=== PATIENT | female | born 1975 | race Caucasian/White ===

== ENCOUNTER → 2016-02-28 | Outpatient (CLI) | payer BC ==
--- NOTE | 2016-03-02 10:42 | MM ---
Reason for exam: screening (asymptomatic). Last mammogram was performed 1 year and 2 months ago. Physical Findings: A clinical breast exam by your physician is recommended on an annual basis and results should be correlated with mammographic findings. MG 3D Screening Mammo W/Cad Bilateral CC and MLO view(s) were taken. Prior study comparison: January 02, 2015, bilateral MG 3d work up w/cad [facility]. December 20, 2014, bilateral MG screening mammo w CAD. There are scattered fibroglandular densities. Finding: There are typically benign round calcifications in the left breast. There is a chronic nodularity in the left breast. There is no discrete abnormality. ASSESSMENT: Benign, BI-RAD 2 RECOMMENDATION: Routine screening mammogram of both breasts in 1 year.
== END | disposition home or self-care (01) ==
LOC: RADMAMWWP 09:12
PROVIDERS: ATTEND Family Medicine
DX: Z12.31 Encounter for screening mammogram for malignant neoplasm of breast (principal)
CPT/HCPCS: 77063; G0202

== ENCOUNTER → 2016-03-02 | Outpatient (CLI) | payer BC ==
[2016-03-02 12:32] VITALS: BMI 44.4
== END | disposition home or self-care (01) ==
LOC: BARWHC3 08:40
PROVIDERS: ATTEND Surgery
DX: Z71.3 Dietary counseling and surveillance (principal); E66.01 Morbid (severe) obesity due to excess calories
CPT/HCPCS: 97804

== ENCOUNTER 2016-03-13 11:56 | Day surgery (SDC) | payer BC ==
[2016-03-09 15:10] VITALS: BMI 44.6
[~2016-03-13 11:56] MED LIST: LACTATED RINGERS 1,000 ML IV SCH
[2016-03-13] MEDS ORDERED: LIDOCAINE 1% 20 ML VIAL (10MG/ML) FOR IV START INTRADERMA ONE (12:25)
[2016-03-13 12:28] VITALS: TEMP 97.3
[2016-03-13] MEDS ORDERED: PROPOFOL 10 MG/ML 20 ML VIAL IV ONE (12:35)
--- NOTE | 2016-03-13 12:36 | P.GSHP ---
History of Present Illness H&P Date: 03/13/16 Chief Complaint: GERD Patient or today for upper endoscopy. Patient is being worked up preoperatively for a colonoscopy. She admits to intermittent reflux. Denies dysphagia. Past Medical History Past Medical History: Hypertension History of Any Multi-Drug Resistant Organisms: None Reported Past Surgical History: Section, Tonsillectomy, Tubal Ligation, Uterine Ablation Past Anesthesia/Blood Transfusion Reactions: Previous Problems w/ Anesthesia Additional Past Anesthesia/Blood Transfusion Reaction / Comment(s): HAS HAD "HARD TIME WAKING UP" Past Psychological History: Anxiety Smoking Status: Never smoker Past Alcohol Use History: None Reported Past Drug Use History: None Reported - Past Family History Mother Family Medical History: Cancer Additional Family Medical History / Comment(s): lung, from lung cancer Father Family Medical History: Cancer Additional Family Medical History / Comment(s): throat and lung cancer Medications and Allergies Home Medications Medication Instructions Recorded Confirmed Type ALPRAZolam [Xanax] 0.25 mg PO DIRECTED PRN 09/19/15 03/13/16 History Losartan/Hydrochlorothiazide 1 tab PO DAILY 09/19/15 03/13/16 History [Losartan-Hctz 50-12.5 mg Tab] Allergies Allergy/AdvReac Type Severity Reaction Status Date / Time No Known Allergies Allergy Verified 03/09/16 15:06 Surgical - Exam Vital Signs Temp Pulse Resp BP Pulse Ox 97.3 F L 85 16 151/95 98 03/13/16 12:13 03/13/16 12:13 03/13/16 12:13 03/13/16 12:13 03/13/16 12:13 Physical exam: General: Well-developed, well-nourished HEENT: Normocephalic, sclerae nonicteric Abdomen: Nontender, nondistended Extremities: No edema Neuro: Alert and oriented Assessment and Plan (1) Morbid obesity Narrative/Plan: Will proceed with upper endoscopy today. Status: Acute
--- NOTE | 2016-03-13 12:46 | P.PCN ---
Date of Procedure: 03/13/16 Procedure(s) Performed: Preoperative Dx: GERD, presurgical Postoperative Dx: Mild gastritis Procedure: EGD with Bx Anesthesia: Sedation Endoscopist: Dr. Villatoro Specimens: Antrum Endoscopic Procedure: The patient was on the endoscopy table in the left decubitus position. The Olympus gastroscope was inserted into the oropharynx and passed under direct visualization to the region of the third portion of the duodenum. From that point the scope was slowly withdrawn inspecting all surfaces carefully. There were no neoplastic inflammatory or polypoid lesions throughout the duodenum. The pylorus was widely patent. The stomach was carefully inspected. There was mild gastritis present. A biopsy of the antrum took place to rule out H. pylori. Retroflexion revealed a normal hiatus. The esophagus was then carefully examined. There were no neoplastic inflammatory or polypoid lesions throughout the visualized esophagus. The patient was then taken to the recovery room in stable condition per anesthesia guidelines. Recommendations: Await biopsies results. Disposition: observation
[2016-03-13 13:11] VITALS: BP 139/89; PULSE 86; RESP 18
== END 2016-03-13 13:25 | disposition home or self-care (01) ==
LOC: ORWHC2ENDO 11:56
PROVIDERS: ATTEND Surgery
DX: Z01.818 Encounter for other preprocedural examination (principal); K29.50 Unspecified chronic gastritis without bleeding; I10 Essential (primary) hypertension; F41.9 Anxiety disorder, unspecified; F39 Unspecified mood [affective] disorder; E66.01 Morbid (severe) obesity due to excess calories; Z68.41 Body mass index [BMI] 40.0-44.9, adult; Z79.899 Other long term (current) drug therapy
CPT/HCPCS: 81025; 88305; 88342; 43239; J2704

== ENCOUNTER → 2016-04-02 | Outpatient (CLI) | payer BC ==
[2016-04-02 11:14] LABS: EKG EKG PERFORMED
[2016-04-02 11:47] LABS: ALT 52 U/L (9-52); AST 21 U/L (14-36); Alkaline Phosphatase 77 U/L (38-126); Anion Gap 10 mmol/L; Blood Urea Nitrogen 12 mg/dL (7-17); Calcium 9.3 mg/dL (8.4-10.2); Carbon Dioxide 26 mmol/L (22-30); Chloride 105 mmol/L (98-107); Glucose 102 mg/dL (74-99); Non-African American GFR(MDRD) >60 (>60 ml/min/1.73 sqM); Potassium 4.5 mmol/L (3.5-5.1); Sodium 141 mmol/L (137-145); Total Bilirubin 0.6 mg/dL (0.2-1.3); Total Protein 7.1 g/dL (6.3-8.2)
[2016-04-02 11:57] LABS: Basophils # (A) 0.1 k/uL (0-0.2); Basophils % (A) 1 %; CH 27.2; CHCM 32.4; Eosinophils # (A) 0.1 k/uL (0-0.7); Eosinophils % (A) 1 %; HCT 41.7 % (34.0-46.0); HDW 2.61; HGB 13.3 gm/dL (11.4-16.0); Luc # (Auto) 0.17; Luc % (Auto) 3; Lymphocytes % (A) 29 %; MCH 26.8 pg (25.0-35.0); MCHC 31.8 g/dL (31.0-37.0); MCV 84.2 fL (80.0-100.0); Mean Platelet Volume 7.2; Monocytes # (A) 0.4 k/uL (0-1.0); Monocytes % (A) 5 %; Neutrophils # (A) 4.1 k/uL (1.3-7.7); Neutrophils % (A) 61 %; RBC 4.95 m/uL (3.80-5.40); RDW 13.8 % (11.5-15.5); WBC 6.8 k/uL (3.8-10.6); WBC (Perox) 7.13
== END | disposition home or self-care (01) ==
LOC: LABPAT 10:49
PROVIDERS: ATTEND Surgery
DX: Z01.812 Encounter for preprocedural laboratory examination (principal)
CPT/HCPCS: 36415; 80053; 85025; 93005

== ENCOUNTER 2016-04-24 07:45 | Inpatient (IN) | payer BC ==
[~2016-04-24 07:45] MED LIST changes: +DEXAMETHASONE SOD PHOSPHATE 10 MG/ML 1 ML VIAL IV ONE; -LACTATED RINGERS 1,000 ML IV SCH; +MIDAZOLAM 2 MG/2 ML VIAL IV PRN; +ONDANSETRON 4 MG/2 ML VIAL IVP ONE; +SCOPOLAMINE 1.5MG/72HR PATCH TRANSDERM ONE; +ceFAZolin 2 GM in SODIUM CHLORIDE 0.9% 100 ML IVPB ONE
[2016-04-24] MEDS ORDERED: PANTOPRAZOLE 40 MG/10 ML VIAL IV STA (09:18)
[2016-04-24] MEDS ORDERED: AMPICILLIN-SULBACTAM 3 GM in SODIUM CHLORIDE 0.9% 100 ML IVPB ONE (09:18)
[2016-04-24] MEDS ORDERED: ENOXAPARIN 40 MG/0.4 ML SYRINGE SQ STA (09:18)
[2016-04-24] MEDS: LACTATED RINGERS 1,000 ML IV SCH (09:22)
--- NOTE | 2016-04-24 09:22 | P.GSHP ---
History of Present Illness H&P Date: 04/24/16 Chief Complaint: Morbid obesity Patient is known to our service. We started see her last fall for proposed bariatric surgery. The patient is interested in sleeve gastrectomy. She has investigated gastric bypass and the lap band but prefers the sleeve. She had an aunt with done very well with the sleeve gastrectomy. Denies any history of DVT or dysphagia in the past. Recent upper endoscopy shows no hiatal hernia. Patient suffers from hypertension which should improve with surgical weight loss. Past Medical History Past Medical History: Hypertension History of Any Multi-Drug Resistant Organisms: None Reported Past Surgical History: Section, Tonsillectomy, Tubal Ligation, Uterine Ablation Additional Past Surgical History / Comment(s): recent EGD Past Anesthesia/Blood Transfusion Reactions: No Reported Reaction Past Psychological History: Anxiety Smoking Status: Never smoker Past Alcohol Use History: None Reported Past Drug Use History: None Reported - Past Family History Mother Family Medical History: Cancer Additional Family Medical History / Comment(s): lung, from lung cancer Father Family Medical History: Cancer Additional Family Medical History / Comment(s): throat and lung cancer Medications and Allergies Home Medications Medication Instructions Recorded Confirmed Type ALPRAZolam [Xanax] 0.25 mg PO DIRECTED PRN 09/19/15 04/24/16 History Losartan/Hydrochlorothiazide 1 tab PO DAILY 09/19/15 04/24/16 History [Losartan-Hctz 50-12.5 mg Tab] Allergies Allergy/AdvReac Type Severity Reaction Status Date / Time No Known Allergies Allergy Verified 04/24/16 08:49 Surgical - Exam Vital Signs Temp Pulse Resp BP Pulse Ox 98.1 F 97 18 135/76 96 04/24/16 09:03 04/24/16 09:03 04/24/16 09:03 04/24/16 09:03 04/24/16 09:03 Physical exam: General: Well-developed, well-nourished HEENT: Normocephalic, sclerae nonicteric Abdomen: Nontender, nondistended Extremities: No edema Neuro: Alert and oriented Assessment and Plan (1) Morbid obesity Narrative/Plan: We'll proceed with sleeve gastrectomy at this time. Risks of bleeding, infection, stenosis, leak, peritonitis, abscess, fistula formation, poor weight loss, chronic reflux, vitamin malnutrition efficiencies, HI, PE, DVT, and were discussed. She understands and wishes to proceed. Status: Acute
[2016-04-24] MEDS ORDERED: BUPIVACAIN-EPI 0.25%-1:200,000 30 ML VIAL SQ ONE ×2 (09:41)
[2016-04-24] MEDS ORDERED: LIDOCAINE 1% INJ 10MG/ML (20 ML MDV) ONE (09:45)
[2016-04-24] MEDS ORDERED: HYDROmorphone (PF) 1 MG/ML ONE (09:45)
[2016-04-24] MEDS ORDERED: GLYCOPYRROLATE 0.2 MG/ML 2 ML VIAL ONE (09:45)
[2016-04-24] MEDS ORDERED: METHYLENE BLUE 50 MG/10 ML AMPUL ONE (09:45)
[2016-04-24] MEDS ORDERED: NEOSTIGMINE 1 MG/ML 10 ML VIAL ONE (09:45)
[2016-04-24] MEDS ORDERED: VECURONIUM 10 MG VIAL IV ONE (09:45)
[2016-04-24] MEDS ORDERED: fentaNYL (PF) 50 MCG/ML 2 ML AMP ONE (09:45)
[2016-04-24] MEDS ORDERED: METHYLENE BLUE 50 MG/10 ML AMPUL IRRIGATION ONE (09:45)
[2016-04-24] MEDS ORDERED: SUCCINYLCHOLINE CHLORIDE 100 MG/5 ML SYR IV ONE (09:45)
[2016-04-24] MEDS ORDERED: PROPOFOL 10 MG/ML 20 ML VIAL IV ONE (09:45)
[2016-04-24] MEDS ORDERED: LABETALOL 5 MG/ML VIAL MDV ONE (09:45)
[2016-04-24] MEDS ORDERED: MIDAZOLAM 2 MG/2 ML VIAL ONE (09:45)
[2016-04-24] MEDS ORDERED: LACTATED RINGERS 1,000 ML IV ONE ×2 (10:37)
[2016-04-24] MEDS ORDERED: diphenhydrAMINE 50 MG/ML 1 ML VIAL IVP PRN (11:43)
[2016-04-24] MEDS ORDERED: ONDANSETRON 4 MG/2 ML VIAL IVP PRN (11:43)
[2016-04-24] MEDS ORDERED: SIMETHICONE 40 MG/0.6 ML DROPS 2,000 MG/30 ML BOTTLE PO PRN (11:43)
[2016-04-24] MEDS ORDERED: HYOSCYAMINE ORAL DROPS 1.875 MG/15 ML BOTTLE PO PRN (11:43)
[2016-04-24] MEDS ORDERED: NALOXONE 0.4 MG/ML 1 ML VIAL IV PRN (11:43)
[2016-04-24 11:52] VITALS: RESP 16
--- NOTE | 2016-04-24 11:56 | P.OP ---
Date of Procedure: 04/24/16 Procedure(s) Performed: PREOPERATIVE DIAGNOSIS: Morbid obesity, retention POSTOPERATIVE DIAGNOSIS: Same PROCEDURE: Laparoscopic sleeve gastrectomy SURGEON: Shauna EBL: Minimal ANESTHESIA: General COMPLICATIONS: None OPERATIVE PROCEDURE: Patient was placed in the operating table in the supine position. She was placed under general anesthesia at that time. The abdomen was prepped and draped in sterile fashion after the patient was placed in lithotomy. A 5 mm optical trocar was used to enter the abdominal cavity in the left upper quadrant. Insufflation took place to 15 millimeters mercury. An additional right subxiphoid 5 mm trocar was then placed under direct visualization and then removed. 2 additional 5 mm trochars were placed in the right upper quadrant and left upper quadrant under direct visualization and a 15 mm trocar in the supraumbilical location. The liver was retracted using a medium [place] liver retractor through the right subxiphoid trocar site. The hiatus was inspected. The patient had no visible hiatal hernia At that point I moved to the mid aspect of the greater curvature the stomach. The short gastric vasculature was divided using a LigaSure device proximally. I then switched and divided the short gastrics distally to a 3-4 cm from the pylorus. The dissection took place up to the left diaphragmatic crura at that point. The posterior short gastrics were likewise divided using the LigaSure device. Once the stomach was fully mobilized the blunt tipped 40-Persian bougie dilator was advanced into the stomach and advanced all the way to the prepyloric location. A black echelon 60 stapler was utilized and fired tangentially across the antrum taking care to avoid narrowing at the incisura angularis. Subsequent firings of the stapler took place. A total of 4 green echelon 60 staplers with seam guard took place proximally staying on the outer edge of our dilator. Once we reached the most proximal portion of the stomach a single firing of the gold echelon 60 stapler without seen guard took place. The oral gastric tube was reinserted. The stomach was insufflated with approximately 100 mL of methylene blue. No evidence of leak or obstruction was seen. The distal aspect of the sleeve was then reapproximated to the gastrosplenic and gastrocolic ligament using a short running 2-0 strata fix suture. This was done to prevent kinking or twisting of the sleeve. The stomach remnant was removed from the 15 mm trocar site without difficulty. The fascia at the 15 more site was closed using interrupted 0 Vicryl sutures with the laparoscopic suture passer and Yonny Raquel technique. The insufflation was evacuated. The skin at all 5 incisions were closed using 4-0 Monocryl sutures. Steri- Strips and sterile dressings were then applied. DISPOSITION: Stable to recovery room
[2016-04-24] MEDS ORDERED: ACETAMINOPHEN IV (For NPO) 1,000 MG in EMPTY BAG 1 BAG IVPB ONE (12:00)
[2016-04-24] MEDS ORDERED: ENALAPRILAT 1.25 MG/ML 1 ML VIAL IVP STA ×2 (12:20→13:48)
[2016-04-24] MEDS ORDERED: ENALAPRILAT 1.25 MG/ML 1 ML VIAL IVP ONE (12:23)
[2016-04-24] MEDS: HYDROmorphone 1 MG/ML 1 ML SYRINGE IVP PRN ×2 (12:33→13:05)
[2016-04-24 15:17] VITALS: BMI 41.1
[2016-04-24] MEDS: ALBUTEROL NEBULIZED 2.5 MG/3 ML INHALATION SCH ×2 (15:56→19:21)
[2016-04-25] MEDS: 0.9% NACL WITH KCL 20 MEQ/L 1,000 ML IV SCH ×2 (01:39→12:41)
[2016-04-25] MEDS: HYDROmorphone 1 MG/ML 1 ML SYRINGE IVP PRN ×3 (01:40→12:42)
[2016-04-25] MEDS: LACTATED RINGERS 1,000 ML IV SCH (05:55)
[2016-04-25 07:06] LABS: Basophils % (A) 0 %; CH 27.6; CHCM 33.4; Eosinophils % (A) 0 %; HCT 35.4 % (34.0-46.0); HDW 2.82; HGB 11.7 gm/dL (11.4-16.0); Luc # (Auto) 0.23; Luc % (Auto) 2; Lymphocytes # (A) 1.6 k/uL (1.0-4.8); Lymphocytes % (A) 13 %; MCH 27.6 pg (25.0-35.0); MCHC 33.2 g/dL (31.0-37.0); MCV 83.1 fL (80.0-100.0); Mean Platelet Volume 8.2; Monocytes # (A) 0.7 k/uL (0-1.0); Monocytes % (A) 5 %; Neutrophils # (A) 9.5 k/uL (1.3-7.7); Neutrophils % (A) 79 %; RBC 4.26 m/uL (3.80-5.40); RDW 14.2 % (11.5-15.5); WBC (Perox) 12.83
[2016-04-25 07:19] LABS: Anion Gap 11 mmol/L; Blood Urea Nitrogen 6 mg/dL (7-17); Calcium 8.1 mg/dL (8.4-10.2); Carbon Dioxide 20 mmol/L (22-30); Chloride 110 mmol/L (98-107); Magnesium 1.8 mg/dL (1.6-2.3); Non-African American GFR(MDRD) >60 (>60 ml/min/1.73 sqM); Phosphorous 2.4 mg/dL (2.5-4.5); Sodium 141 mmol/L (137-145)
--- NOTE | 2016-04-25 07:26 | FL ---
EXAMINATION TYPE: FL UGI DATE OF EXAM: 04/25/2016 7:22 AM COMPARISON: NONE HISTORY: Post sleeve procedure TECHNIQUE: A single contrast UGI study is performed. FINDINGS: Money Room Supervisor image of the abdomen shows no gross abnormality. The esophagus shows normal motility and emptying into the stomach. No evidence of obstruction or extr avasation.. IMPRESSION: 1. No evidence of obstruction or extravasation.
[2016-04-25] MEDS: ALBUTEROL NEBULIZED 2.5 MG/3 ML INHALATION SCH ×4 (08:57→20:28)
[2016-04-25] MEDS: PANTOPRAZOLE 40 MG/10 ML VIAL IV SCH (09:06)
--- NOTE | 2016-04-25 10:42 | CONS ---
DATE OF CONSULTATION: 04/24/2016 REASON FOR CONSULTATION: Medical management requested by Dr. Villatoro. CONSULTATION: This is a pleasant 41-year-old patient I saw yesterday on 04/24/16. Patient's chronic stable medical conditions include hypertension. The patient has undergone sleeve gastrectomy by Dr. Villatoro. Patient is jesenia in bed. No nausea or vomiting. Very slight abdominal discomfort. No chest pain or shortness of breath. REVIEW OF SYSTEMS: CONSTITUTIONAL: Tired. HEENT: None. RESPIRATORY: None. CARDIOVASCULAR: None. GASTROINTESTINAL: Slight abdominal pain. GENITOURINARY: None. MUSCULOSKELETAL: None. DERMATOLOGICAL: None. HEMATOLOGICAL: None. LYMPHATIC: None. PSYCHIATRY: None. NEUROLOGICAL: None. PAST MEDICAL HISTORY: Hypertension, obesity. PAST SURGICAL HISTORY: , tonsillectomy, tubal ligation, uterine ablation, EGD. SOCIAL HISTORY: Does not smoke. . No alcohol. Family history of lung cancer. HOME MEDICATIONS: 1. Losartan hydrochlorothiazide 50/12.5 one tablet p.o. daily. 2. Xanax 0.25 p.o. b.i.d. p.r.n. 3. Omeprazole 20 mg daily. 4. [place] 5 one to two tablets q.4 p.r.n. ALLERGIES: None. On examination, temperature 98.6, pulse 65, respiration 16, blood pressure 170/82, pulse ox 92% on 2 L. Repeat blood pressure down to 138/68. GENERAL APPEARANCE: Well built, BMI of 41.2, lying in bed, not in distress. EYES: Pupils equal. Conjunctivae normal. HEENT: External appearance of nose and ears normal. Oral cavity normal. NECK: JVD not raised. Mass not palpable. RESPIRATORY: Effort normal. Lungs are clear. CARDIOVASCULAR: First and second sounds normal. No edema. ABDOMEN: Mild tenderness, soft. Liver and spleen not palpable. LYMPHATIC: No lymph nodes palpable in neck or axillae. PSYCHIATRY: Alert and oriented x3. Mood and affect normal. NEUROLOGICAL: Pupils equal. Cranial nerves grossly intact. Power and sensation grossly intact. INVESTIGATIONS: White count 12, hemoglobin 11.7. Potassium 4. ASSESSMENT: 1. Sleeve gastrectomy for morbid obesity, body mass index of 41.2. 2. Leukocytosis, likely from stress reaction from surgery. No clinical evidence of infection. 3. Essential hypertension. 4. Gastroesophageal reflux disease. PLAN: Patient will have an upper gastrointestinal series in the morning then patient's antihypertensives can be resumed. Patient has got boots for DVT prophylaxis. Care was discussed with the patient. Questions were answered. Patient to follow with Dr. Harrell upon discharge. Thank you, Dr. Villatoro.
--- NOTE | 2016-04-25 11:47 | P.PN ---
Subjective Principal diagnosis: Morbid obesity Patient doing quite well today. White blood cell count was 12. Upper GI shows no evidence of leak or obstruction. She is ambulating. Objective - Vital Signs Vital signs: Vital Signs Temp 96.6 F L 04/25/16 07:33 Pulse 78 04/25/16 07:33 Resp 16 04/25/16 07:33 BP 133/64 04/25/16 07:33 Pulse Ox 96 04/25/16 08:53 Intake & Output 04/24/16 04/25/16 04/25/16 18:59 06:59 18:59 Intake Total 1550 Output Total 660 1100 Balance 890 -1100 Weight 98.9 kg Intake: IV 1550 Output: Urine 650 1100 Estimated Blood Loss 10 Other: Voiding Method Toilet Toilet # Voids 2 - Exam Abdomen: Soft, nondistended, mild incisional tenderness - Labs CBC & Chem 7: 04/25/16 06:32 04/25/16 06:32 Labs: Abnormal Lab Results - Last 24 Hours (Table) 04/25/16 04/25/16 Range/Units 06:32 06:32 WBC 12.0 H (3.8-10.6) k/uL Neutrophils # 9.5 H (1.3-7.7) k/uL Chloride 110 H (98-107) mmol/L Carbon Dioxide 20 L (22-30) mmol/L BUN 6 L (7-17) mg/dL Calcium 8.1 L (8.4-10.2) mg/dL Phosphorus 2.4 L (2.5-4.5) mg/dL Assessment and Plan (1) Morbid obesity Narrative/Plan: Continue bariatric clear diet. Ambulate. Probable discharge tomorrow. Status: Acute
[2016-04-25] MEDS: ENOXAPARIN 40 MG/0.4 ML SYRINGE SQ SCH ×2 (13:08→20:35)
[2016-04-25] MEDS: KETOROLAC 30 MG/ML 1 ML VIAL IVP SCH ×3 (13:12→23:31)
--- NOTE | 2016-04-25 20:01 | PN ---
DATE OF SERVICE: 04/25/2016 PRESENTING COMPLAINT: Sleeve gastrectomy. INTERVAL HISTORY: Patient is status post sleeve gastrectomy. Did, pass her upper GI series, started on clear liquids, has been up in the hallway. Overall feeling better. Review of systems done for constitutional, cardiovascular, GI, pulmonary; relevant findings as above. Current medications are reviewed. On examination, temperature 96.6, pulse 78, respirations 16, blood pressure 133/64, pulse ox 98% on room air. GENERAL APPEARANCE: Lying in bed, comfortable. EYES: Pupils equal. Conjunctivae normal. NECK: JVD not raised. Mass not palpable. RESPIRATORY: Effort normal. Lungs are clear. CARDIOVASCULAR: First and second sounds normal. No edema. ABDOMEN: Soft, mild tenderness. Liver and spleen not palpable. PSYCHIATRY: Mood and affect normal. INVESTIGATIONS: White count 12, hemoglobin 11.7, potassium 4. ASSESSMENT: 1. Sleeve gastrectomy for morbid obesity, body mass index of 41.2. 2. Leukocytosis likely from stress reaction from Surgery. No evidence of infection. 3. Essential hypertension. 4. Gastroesophageal reflux disease. 5. Morbid obesity; body mass index 41.2. PLAN: Patient is doing well. Encouraged to ambulate. Continue current medications and treatment plan.
[2016-04-26] MEDS: 0.9% NACL WITH KCL 20 MEQ/L 1,000 ML IV SCH (05:16)
[2016-04-26] MEDS: LACTATED RINGERS 1,000 ML IV SCH (05:17)
[2016-04-26] MEDS: KETOROLAC 30 MG/ML 1 ML VIAL IVP SCH (05:56)
[2016-04-26] MEDS: ALBUTEROL NEBULIZED 2.5 MG/3 ML INHALATION SCH ×2 (07:24→11:57)
[2016-04-26] MEDS: ENOXAPARIN 40 MG/0.4 ML SYRINGE SQ SCH (07:41)
[2016-04-26] MEDS: PANTOPRAZOLE 40 MG/10 ML VIAL IV SCH (07:41)
--- NOTE | 2016-04-26 10:14 | P.DS ---
Providers Date of admission: 04/24/16 08:30 Expected date of discharge: 04/26/16 Attending physician: Pa Villatoro Consults: 04/24/16 11:53 Consult Physician Routine Consulting Provider: George Gotti Consult Reason/Comments: Medical management Do you want consulting provider notified?: Yes Primary care physician: Enmanuel Harrell - Discharge Diagnosis(es) (1) Morbid obesity Patient hospitalized for elective sleeve gastrectomy. She is currently postop day #2. Her postoperative upper GI shows no evidence of leak or obstruction. She has been ambulating quite nicely. Her pain is minimal. She is tolerating her liquids. Incisions are clean and dry. She is being discharged today with plans for outpatient follow-up this coming week. Current Visit: No Status: Acute Plan - Discharge Summary New Discharge Prescriptions: Hydrocodone/Acetaminophen [[place] 5-325] 1 - 2 each PO Q4HR PRN #30 tab PRN Reason: pain Omeprazole 20 mg PO DAILY #90 cap Discharge Medication List ALPRAZolam [Xanax] 0.25 mg PO BID PRN 09/19/15 [History] Losartan/Hydrochlorothiazide [Losartan-Hctz 50-12.5 mg Tab] 1 tab PO DAILY 09/18 [History] Hydrocodone/Acetaminophen [[place] 5-325] 1 - 2 each PO Q4HR PRN #30 tab 04/24/16 [Rx] Omeprazole 20 mg PO DAILY #90 cap 04/24/16 [Rx] Follow up Appointment(s)/Referral(s): Pa Villatoro MD [Medical Doctor] - [facility],. [NON-STAFF] - 04/28/16
[2016-04-26 10:54] LABS: Basophils # (A) 0.1 k/uL (0-0.2); Basophils % (A) 1 %; CH 27.4; CHCM 33.2; Eosinophils % (A) 0 %; HCT 34.3 % (34.0-46.0); HDW 2.93; HGB 10.9 gm/dL (11.4-16.0); Luc # (Auto) 0.19; Luc % (Auto) 3; Lymphocytes # (A) 2.2 k/uL (1.0-4.8); Lymphocytes % (A) 31 %; MCH 26.3 pg (25.0-35.0); MCHC 31.7 g/dL (31.0-37.0); Mean Platelet Volume 8.5; Monocytes # (A) 0.4 k/uL (0-1.0); Monocytes % (A) 5 %; Neutrophils # (A) 4.3 k/uL (1.3-7.7); Neutrophils % (A) 60 %; RBC 4.14 m/uL (3.80-5.40); RDW 14.4 % (11.5-15.5); WBC 7.2 k/uL (3.8-10.6); WBC (Perox) 7.21
[2016-04-26 13:49] VITALS: BP 144/76; PULSE 74; TEMP 97.1
== END 2016-04-26 14:23 | disposition home or self-care (01) | DRG 621 ==
LOC: 2ORWHC 08:30 → 3SUR 11:53
PROVIDERS: ADMIT Surgery; ATTEND Surgery
PROC: 0DB64Z3 Excision of Stomach, Percutaneous Endoscopic Approach, Vertical (ICD-10-PCS; principal; 2016-04-24 09:40)
DX: E66.01 Morbid (severe) obesity due to excess calories (principal); I10 Essential (primary) hypertension; D72.829 Elevated white blood cell count, unspecified; F41.9 Anxiety disorder, unspecified; K21.9 Gastro-esophageal reflux disease without esophagitis; Z68.41 Body mass index [BMI] 40.0-44.9, adult; Z80.1 Family history of malignant neoplasm of trachea, bronchus and lung; Z79.899 Other long term (current) drug therapy
CPT/HCPCS: 74240; 80051; 82310; 82565; 83735; 84100; 84520; 85025; 88307; 92950; 94760

== ENCOUNTER → 2016-04-28 | Outpatient (CLI) | payer BC ==
[2016-04-28 15:12] VITALS: BMI 41.8
[2016-04-28 15:34] VITALS: BP 155/87; PULSE 74; RESP 20; TEMP 98
--- NOTE | 2016-04-28 16:08 | P.BASOAP ---
Subjective Principal diagnosis: Obesity The patient doing well today. Surgery was 4 days ago. Yesterday she was having some mild dysphagia but better today. Tolerating proximal 40-50 ounces of liquids. No heartburn. Minimal discomfort. Weight increased slightly by 3 pounds since surgery date. Objective - Vital Signs Vital signs: Vital Signs Temp 98 F 04/28/16 15:21 Pulse 74 04/28/16 15:21 Resp 20 04/28/16 15:21 BP 155/87 04/28/16 15:21 Pulse Ox Intake & Output 04/27/16 04/28/16 04/28/16 18:59 06:59 18:59 Weight 100.289 kg - Exam Abdomen: Soft, nontender, nondistended, incisions clean and dry Assessment/Plan (1) Morbid obesity Narrative/Plan: Continue bariatric liquid diet. Increase activity. Increase both liquid and protein intake. Follow-up evaluation 2 weeks. Plan: Date: 04/28/16 Initial Weight: 108.726 kg Initial BMI: 45.3 Current Weight: 100.289 kg Current BMI: 41.8 Type of Surgery: Total Volume in Band: Previous Volume: Volume Removed: Volume Added: Band Size:
== END | disposition home or self-care (01) ==
LOC: BARWHC3 14:14
PROVIDERS: ATTEND Surgery
DX: Z48.815 Encounter for surgical aftercare following surgery on the digestive system (principal); Z71.3 Dietary counseling and surveillance; E66.01 Morbid (severe) obesity due to excess calories; Z68.41 Body mass index [BMI] 40.0-44.9, adult; Z98.84 Bariatric surgery status; R13.10 Dysphagia, unspecified
CPT/HCPCS: 99211

== ENCOUNTER → 2016-05-12 | Outpatient (CLI) | payer BC ==
[2016-05-12 15:15] VITALS: BP 147/85; PULSE 86; RESP 18; TEMP 98.3; BMI 39.6
--- NOTE | 2016-05-12 16:12 | P.BASOAP ---
Subjective Principal diagnosis: Morbid obesity Patient doing well today. Denies hunger or cravings. No heartburn. She is a good weight loss since her last visit. No abdominal pain. Preoperative weight was 221 today to 07. Objective - Vital Signs Vital signs: Vital Signs Temp 98.3 F 05/12/16 15:03 Pulse 86 05/12/16 15:03 Resp 18 05/12/16 15:03 BP 147/85 05/12/16 15:03 Pulse Ox Intake & Output 05/11/16 05/12/16 05/12/16 18:59 06:59 18:59 Weight 95.209 kg - Exam Abdomen: Soft, nontender, nondistended, incisions clean and dry Assessment/Plan (1) Morbid obesity Narrative/Plan: Continue antiacid therapy for now. We'll check one month labs. Follow-up 1 month. Plan: Date: 05/12/16 Initial Weight: 108.726 kg Initial BMI: 45.3 Current Weight: 95.209 kg Current BMI: 39.6 Type of Surgery: Total Volume in Band: Previous Volume: Volume Removed: Volume Added: Band Size:
== END | disposition home or self-care (01) ==
LOC: BARWHC3 14:26
PROVIDERS: ATTEND Surgery
DX: Z48.815 Encounter for surgical aftercare following surgery on the digestive system (principal); E66.01 Morbid (severe) obesity due to excess calories; Z68.39 Body mass index [BMI] 39.0-39.9, adult; Z98.84 Bariatric surgery status; E55.9 Vitamin D deficiency, unspecified
CPT/HCPCS: 99211

== ENCOUNTER → 2016-05-26 | Outpatient (CLI) | payer BC ==
[2016-05-26 14:25] LABS: ALT 50 U/L (9-52); AST 26 U/L (14-36); Alkaline Phosphatase 73 U/L (38-126); Anion Gap 12 mmol/L; Blood Urea Nitrogen 13 mg/dL (7-17); Calcium 9.3 mg/dL (8.4-10.2); Carbon Dioxide 24 mmol/L (22-30); Chloride 105 mmol/L (98-107); Glucose 82 mg/dL (74-99); Iron 30 ug/dL (37-170); Magnesium 1.7 mg/dL (1.6-2.3); Non-African American GFR(MDRD) >60 (>60 ml/min/1.73 sqM); Potassium 4.6 mmol/L (3.5-5.1); Sodium 141 mmol/L (137-145); Total Bilirubin 0.5 mg/dL (0.2-1.3); Total Protein 6.6 g/dL (6.3-8.2)
[2016-05-26 14:32] LABS: Prealbumin 13 mg/dL (18-36)
[2016-05-26 14:37] LABS: CH 26.6; CHCM 31.4; HCT 41.7 % (34.0-46.0); HDW 2.95; HGB 13.5 gm/dL (11.4-16.0); Hypochromasia Slight; MCH 27.5 pg (25.0-35.0); MCHC 32.3 g/dL (31.0-37.0); MCV 85.3 fL (80.0-100.0); Mean Platelet Volume 7.8; RBC 4.89 m/uL (3.80-5.40); RDW 14.9 % (11.5-15.5); WBC 7.6 k/uL (3.8-10.6)
[2016-05-26 15:30] LABS: Vitamin B12 466 pg/mL (239-931)
== END ==
LOC: LABWHC1 13:24
PROVIDERS: ATTEND Surgery
DX: Z48.815 Encounter for surgical aftercare following surgery on the digestive system (principal); E66.01 Morbid (severe) obesity due to excess calories; K90.9 Intestinal malabsorption, unspecified; E55.9 Vitamin D deficiency, unspecified; Z98.84 Bariatric surgery status
CPT/HCPCS: 36415; 80053; 82306; 82607; 82746; 83540; 83735; 84100; 84134; 84425; 85027

== ENCOUNTER → 2016-06-09 | Outpatient (CLI) | payer BC ==
[2016-06-09 13:05] VITALS: BP 136/78; PULSE 80; TEMP 97.8; BMI 37.4
--- NOTE | 2016-06-09 13:51 | P.BASOAP ---
Subjective Principal diagnosis: Morbid obesity Patient doing quite well today. She has had excellent weight loss approximately 12 pounds since her last visit. Her 1 month lab work did reveal low iron and low vitamin D. She is started on multivitamin with iron is taking B12 shots and is also taking calcium and vitamin D 3. Patient denies reflux. No nausea or vomiting. Energy level is quite good. She is starting to train for a couch to 5K. Objective - Vital Signs Vital signs: Vital Signs Temp 97.8 F 06/09/16 13:01 Pulse 80 06/09/16 13:01 Resp BP 136/78 06/09/16 13:01 Pulse Ox Intake & Output 06/08/16 06/09/16 06/09/16 18:59 06:59 18:59 Weight 89.811 kg - Exam Abdomen: Soft, nondistended, nontender, incisions clean and dry Assessment/Plan (1) Morbid obesity Narrative/Plan: Continue multivitamins as discussed above. Continue increasing activity level. Dietary evaluation today. Follow-up with me in 4-6 weeks. Plan: Date: 06/09/16 Initial Weight: 108.726 kg Initial BMI: 45.3 Current Weight: 89.811 kg Current BMI: 37.4 Type of Surgery: Total Volume in Band: Previous Volume: Volume Removed: Volume Added: Band Size:
== END | disposition home or self-care (01) ==
LOC: BARWHC3 12:49
PROVIDERS: ATTEND Surgery
DX: E66.01 Morbid (severe) obesity due to excess calories (principal)
CPT/HCPCS: 97803; 99211

== ENCOUNTER → 2016-07-07 | Outpatient (CLI) | payer BC ==
[2016-07-07 14:19] VITALS: BP 167/97; PULSE 74; RESP 16; TEMP 98.3; BMI 35.4
--- NOTE | 2016-07-07 17:41 | PN ---
DATE OF SERVICE: 07/07/2016 BARIATRIC PROGRESS NOTE: CHIEF COMPLAINT: Morbid obesity. INTERVAL HISTORY: Patient doing well today. She is still working on her couch to [employer]. She has had 11-pound weight loss in the last one month. She recently joined [employer]. She is due for 3 month lab work at this time. She does have heartburn after missing 2 doses of her antacid therapy. PHYSICAL EXAMINATION: The patient is afebrile. Vital signs are stable. ABDOMEN: Soft, nontender, nondistended. IMPRESSION: A 41-year-old female status post sleeve gastrectomy. PLAN: Will order 3-month lab work at this time. New prescription for antacid therapy provided. The patient will follow up with me in 4-6 weeks.
== END | disposition home or self-care (01) ==
LOC: BARWHC3 13:53
PROVIDERS: ATTEND Surgery
DX: E66.01 Morbid (severe) obesity due to excess calories (principal); E55.9 Vitamin D deficiency, unspecified; K90.89 Other intestinal malabsorption; Z98.84 Bariatric surgery status
CPT/HCPCS: 99211

== ENCOUNTER 2016-07-23 10:18 | Emergency (ER) | payer BC ==
[2016-07-23] MEDS ORDERED: ONDANSETRON 4 MG/2 ML VIAL IVP STA (11:27)
[2016-07-23] MEDS ORDERED: HYDROmorphone 1 MG/ML 1 ML SYRINGE IVP STA (11:27)
[2016-07-23] MEDS ORDERED: SODIUM CHLORIDE 0.9% 1,000 ML IV STA (11:27)
--- NOTE | 2016-07-23 11:29 | ED ---
General Adult HPI - General Chief complaint: Abdominal Pain Stated complaint: Abd Pain Time Seen by Provider: 07/23/16 10:54 Source: patient, RN notes reviewed Mode of arrival: ambulatory Limitations: no limitations - History of Present Illness Initial comments: Patient 41-year-old female who presents emergency room today with chief complaint of left-sided abdominal and flank pain times one day. She does admit that symptoms started yesterday afternoon. She admits that she's had symptoms of nausea vomiting. She states the symptoms are consistent with kidney stones that she's had in the past. Currently rates pain 8/10. Denies any other points associated symptoms at this time. Patient denies any recent fever, chills , shortness of breath, chest pain, numbness or tingling, dysuria or hematuria, constipation or diarrhea, headaches or visual changes, or any other complaints. - Related Data Home Medications Medication Instructions Recorded Confirmed Calcium Carbonate/Vitamin D3 1 tab PO DAILY 07/23/16 07/23/16 [Calcium 600-Vit D3 400 Caplet] Cyanocobalamin (Vitamin B-12) 1,000 mcg PO DAILY 07/23/16 07/23/16 [Vitamin B-12] Multivitamins, Thera [Multivitamin 1 tab PO BID 07/23/16 07/23/16 (formulary)] Previous Rx's Medication Instructions Recorded Omeprazole 20 mg PO DAILY #90 cap 04/24/16 Hydrocodone/Acetaminophen [[place] 1 each PO Q6HR PRN #20 tab 07/23/16 5-325] Ibuprofen [Motrin] 600 mg PO Q6HR PRN #40 day 07/23/16 Ondansetron Odt [Zofran ODT] 4 mg PO Q8HR PRN #20 tab 07/23/16 Tamsulosin [Flomax] 0.4 mg PO DAILY #10 cap 07/23/16 Allergies Allergy/AdvReac Type Severity Reaction Status Date / Time No Known Allergies Allergy Verified 07/23/16 12:04 Review of Systems ROS Statement: Those systems with pertinent positive or pertinent negative responses have been documented in the HPI. ROS Other: All systems not noted in ROS Statement are negative. Past Medical History Past Medical History: Hypertension History of Any Multi-Drug Resistant Organisms: None Reported Past Surgical History: Bariatric Surgery, Section, Tonsillectomy, Tubal Ligation, Uterine Ablation Additional Past Surgical History / Comment(s): GASTRIC SLEEVE 04-24-16 Past Anesthesia/Blood Transfusion Reactions: No Reported Reaction Past Psychological History: No Psychological Hx Reported, Anxiety Smoking Status: Never smoker Past Alcohol Use History: None Reported Past Drug Use History: None Reported - Past Family History Mother Family Medical History: Cancer Additional Family Medical History / Comment(s): lung, from lung cancer Father Family Medical History: Cancer Additional Family Medical History / Comment(s): throat and lung cancer General Exam - General Exam Comments Initial Comments: General: The patient is awake and alert, in no distress, and does not appear acutely ill. Eye: Pupils are equal, round and reactive to light, extra-ocular movements are intact. No nystagmus. There is normal conjunctiva bilaterally. No signs of icterus. Ears, nose, mouth and throat: There are moist mucous membranes and no oral lesions. Neck: The neck is supple, there is no tenderness or JVD. Cardiovascular: There is a regular rate and rhythm. No murmur, rub or gallop is appreciated. Respiratory: Lungs are clear to auscultation, respirations are non-labored, breath sounds are equal. No wheezes, stridor, rales, or rhonchi. Gastrointestinal: Normal appearance abdomen. Normal bowel sounds. Abdomen soft on palpation. Patient does have mild tenderness in the left lower quadrant left flank. No rebound tenderness. No guarding. Musculoskeletal: Normal ROM, no tenderness. Strength 5/5. Sensation intact. Pulses equal bilaterally 2+. Neurological: A&O x 3. CN II-XII intact, There are no obvious motor or sensory deficits. Coordination appears grossly intact. Speech is normal. Skin: Skin is warm and dry and no rashes or lesions are noted. Psychiatric: Cooperative, appropriate mood & affect, normal judgment. Limitations: no limitations Course Vital Signs 07/23/16 07/23/16 10:26 13:02 Temperature 97.9 F 97.6 F Pulse Rate 92 77 Respiratory 17 18 Rate Blood Pressure 178/85 142/67 O2 Sat by Pulse 100 99 Oximetry Medical Decision Making - Medical Decision Making Case discussed in detail with attending physician Dr. ryan.Patient reexamined at this time shows no signs of distress. Resting comfortably in the stretcher. Does admit that she's feeling much better. Patient's labs been reviewed. Small amount of blood in the urinalysis no sign of infection. Patient's x-ray does reveal nephrolithiasis possible UPJ. Results were discussed with the patient. At this time shows comfortable being discharged home advised to follow -up with urology for further evaluation. Patient will be started on Flomax, pain medication and nausea medication go home with. She is advised return if any symptoms increase or worsen or for any other concerns. She states understanding and is in agreement. - Lab Data Result diagrams: 07/23/16 10:00 07/23/16 10:00 Lab Results 07/23/16 07/23/16 07/23/16 Range/Units 10:00 10:00 10:31 WBC 11.5 H (3.8-10.6) k/uL RBC 4.99 (3.80-5.40) m/uL Hgb 13.7 (11.4-16.0) gm/dL Hct 42.6 (34.0-46.0) % MCV 85.4 (80.0-100.0) fL MCH 27.5 (25.0-35.0) pg MCHC 32.2 (31.0-37.0) g/dL RDW 14.9 (11.5-15.5) % Plt Count 236 (150-450) k/uL Neutrophils % 89 % Lymphocytes % 7 % Monocytes % 3 % Eosinophils % 0 % Basophils % 0 % Neutrophils # 10.2 H (1.3-7.7) k/uL Lymphocytes # 0.8 L (1.0-4.8) k/uL Monocytes # 0.3 (0-1.0) k/uL Eosinophils # 0.0 (0-0.7) k/uL Basophils # 0.0 (0-0.2) k/uL Sodium 139 (137-145) mmol/L Potassium 4.7 (3.5-5.1) mmol/L Chloride 105 (98-107) mmol/L Carbon Dioxide 22 (22-30) mmol/L Anion Gap 12 mmol/L BUN 12 (7-17) mg/dL Creatinine 0.72 (0.52-1.04) mg/dL Est GFR (MDRD) Af Amer >60 (>60 ml/min/1.73 sqM) Est GFR (MDRD) Non-Af >60 (>60 ml/min/1.73 sqM) Glucose 122 H (74-99) mg/dL Calcium 9.4 (8.4-10.2) mg/dL Total Bilirubin 0.6 (0.2-1.3) mg/dL AST 22 (14-36) U/L ALT 49 (9-52) U/L Alkaline Phosphatase 87 (38-126) U/L Total Protein 6.9 (6.3-8.2) g/dL Albumin 4.3 (3.5-5.0) g/dL Amylase 60 (30-110) U/L Lipase 38 (23-300) U/L Urine Color Yellow Urine Appearance Clear (Clear) Urine pH 6.5 (5.0-8.0) Ur Specific [place] 1.019 (1.001-1.035) Urine Protein 1+ H (Negative) Urine Glucose (UA) Negative (Negative) Urine Ketones 4+ H (Negative) Urine Blood Small H (Negative) Urine Nitrite Negative (Negative) Urine Bilirubin Negative (Negative) Urine Urobilinogen <2.0 (<2.0) mg/dL Ur Leukocyte Esterase Negative (Negative) Urine RBC 41 H (0-5) /hpf Urine WBC 2 (0-5) /hpf Ur Squamous Epith Cells 3 (0-4) /hpf Urine Mucus Rare H (None) /hpf Disposition Clinical Impression: Kidney stone Disposition: HOME SELF-CARE Condition: Good Instructions: Kidney Stones (ED) Additional Instructions: Please use medication as discussed. Please follow-up with urology/family doctor in the next 2 days of symptoms have not improved. Please return to emergency room if the symptoms increase or worsen or for any other concerns. Prescriptions: Hydrocodone/Acetaminophen [[place] 5-325] 1 each PO Q6HR PRN #20 tab PRN Reason: Pain Ibuprofen [Motrin] 600 mg PO Q6HR PRN #40 day PRN Reason: Pain Ondansetron Odt [Zofran ODT] 4 mg PO Q8HR PRN #20 tab PRN Reason: Nausea Tamsulosin [Flomax] 0.4 mg PO DAILY #10 cap Referrals: Randy Harrell MD [Primary Care Provider] - 1-2 days Branden Wyatt MD [STAFF PHYSICIAN] - 1-2 days Time of Disposition: 13:15
[2016-07-23 11:49] LABS: Basophils % (A) 0 %; CH 27.5; CHCM 32.3; Eosinophils % (A) 0 %; HCT 42.6 % (34.0-46.0); HDW 2.51; HGB 13.7 gm/dL (11.4-16.0); Luc % (Auto) 1; Lymphocytes # (A) 0.8 k/uL (1.0-4.8); Lymphocytes % (A) 7 %; MCH 27.5 pg (25.0-35.0); MCHC 32.2 g/dL (31.0-37.0); MCV 85.4 fL (80.0-100.0); Mean Platelet Volume 8.2; Monocytes # (A) 0.3 k/uL (0-1.0); Monocytes % (A) 3 %; Neutrophils # (A) 10.2 k/uL (1.3-7.7); Neutrophils % (A) 89 %; RBC 4.99 m/uL (3.80-5.40); RDW 14.9 % (11.5-15.5); WBC 11.5 k/uL (3.8-10.6); WBC (Perox) 10.96
[2016-07-23 11:55] LABS: Appearance,Urine Clear (Clear); Bilirubin,Urine Negative (Negative); Glucose,Urine (UA) Negative (Negative); Ketones,Urine 4+ (Negative); Leukocyte Esterase,Urine Negative (Negative); Mucus,Urine Rare /hpf; Nitrite,Urine Negative (Negative); PH, Urine 6.5 (5.0-8.0); Particle Count 1625; Protein,Urine 1+ (Negative); RBC,Urine 41 /hpf (0-5); Specific Gravity,Urine 1.019 (1.001-1.035); Squamous Epithelial Cell,Urine 3 /hpf (0-4); UA Billing (MACRO vs. MICRO) MICRO; Urobilinogen,Urine <2.0 mg/dL (<2.0); WBC,Urine 2 /hpf (0-5)
[2016-07-23 12:12] LABS: ALT 49 U/L (9-52); AST 22 U/L (14-36); Alkaline Phosphatase 87 U/L (38-126); Amylase 60 U/L (30-110); Anion Gap 12 mmol/L; Blood Urea Nitrogen 12 mg/dL (7-17); Calcium 9.4 mg/dL (8.4-10.2); Carbon Dioxide 22 mmol/L (22-30); Chloride 105 mmol/L (98-107); Glucose 122 mg/dL (74-99); Non-African American GFR(MDRD) >60 (>60 ml/min/1.73 sqM); Potassium 4.7 mmol/L (3.5-5.1); Sodium 139 mmol/L (137-145); Total Bilirubin 0.6 mg/dL (0.2-1.3); Total Protein 6.9 g/dL (6.3-8.2)
--- NOTE | 2016-07-23 12:57 | XR ---
EXAMINATION TYPE: XR KUB DATE OF EXAM: 07/23/2016 CLINICAL DATA: 41 year-old female abdominal pain, left posterior flank pain, PHH COMPARISON: None FINDINGS: Lung bases are clear. Surgical material near the GE junction. Bilateral tubal ligation clips. No evidence for free intraperitoneal air. No dilated small bowel or small bowel air-fluid levels. Scattered air and stool seen throughout the c olon extending distally into the rectum. Mild overall stool. There is a 9 mm calcification projecting at the mid to lower pole left kidney. Additional 1.2 cm calc ification projecting at the left paramedian mid abdomen. Punctate calcification projecting at the rig ht mid abdomen. Round calcification in the left hemipelvis suggestive of a phlebolith. IMPRESSION: 1. No evidence of bowel obstruction or free intraperitoneal air. 2. Nephrolithiasis. A 1.2 cm calcification may be in the left renal collecting system/UPJ region. Cli nical correlation recommended.
[2016-07-23 13:04] VITALS: BP 142/67; PULSE 77; RESP 18; TEMP 97.6
== END 2016-07-23 13:26 | disposition home or self-care (01) ==
LOC: EC 10:18
DX: N20.0 Calculus of kidney (principal); R11.2 Nausea with vomiting, unspecified; Z79.899 Other long term (current) drug therapy; Z98.84 Bariatric surgery status
CPT/HCPCS: 36415; 80053; 82150; 83690; 85025; 81001; 74000; 99284; 96374; 96375; 96361; J2405; J1170

== ENCOUNTER → 2016-07-28 | Outpatient (CLI) | payer BC ==
[2016-07-28 15:14] VITALS: BP 160/74; PULSE 62; TEMP 97.3
--- NOTE | 2016-07-28 15:36 | P.BASOAP ---
Subjective Principal diagnosis: Abdominal pain Patient was in the ER 1 week ago with left lower quadrant pain. She states this felt like her kidney stones in the past. She had x-rays performed which apparently showed suspicious calcifications for stones. She was treated with ibuprofen and [place]. She started taking the ibuprofen up to 3 times daily. On Wednesday she started having upper abdominal discomfort. She has pain with ingestion of liquids. That is been persisting. Solids seem to go down easier. She still taken are once daily dosing of Analia. Denies fevers or chills. The pain is intermittent. There are times when the pain is not there at all. She think she may only be taken 15-20 ounces of liquids daily. No history of pancreatitis. She is due for her three-month lab work at this time. Objective - Vital Signs Vital signs: Vital Signs Temp 97.3 F L 07/28/16 14:57 Pulse 62 07/28/16 14:57 Resp BP 160/74 07/28/16 14:57 Pulse Ox - Exam Abdomen: Mild epigastric tenderness, nondistended Assessment/Plan (1) Abdominal pain Narrative/Plan: Will check 3 months labs and we'll add amylase and lipase as well. Add Carafate for possible pill-induced gastritis or ulcer. Continue antiacid therapy considered twice daily dosing for now. We'll try Ultram instead of the [place] which she describes as causing some itching and the side effects of the NSAIDs. If her symptoms persist after the next 24-48 hours will consider CAT scan abdomen. Upper GI or EGD also options of pain persists. Plan: Date: 07/28/16 Initial Weight: 108.726 kg Initial BMI: Current Weight: Current BMI: Type of Surgery: Total Volume in Band: Previous Volume: Volume Removed: Volume Added: Band Size:
[2016-07-28 15:52] LABS: CH 27.5; CHCM 31.8; HCT 38.7 % (34.0-46.0); HDW 2.44; HGB 12.1 gm/dL (11.4-16.0); MCH 27.4 pg (25.0-35.0); MCHC 31.4 g/dL (31.0-37.0); MCV 87.1 fL (80.0-100.0); Mean Platelet Volume 8.1; RBC 4.44 m/uL (3.80-5.40); RDW 14.7 % (11.5-15.5); WBC 7.4 k/uL (3.8-10.6)
[2016-07-28 16:02] LABS: ALT 47 U/L (9-52); AST 19 U/L (14-36); Alkaline Phosphatase 86 U/L (38-126); Amylase 54 U/L (30-110); Anion Gap 11 mmol/L; Blood Urea Nitrogen 12 mg/dL (7-17); Calcium 9.5 mg/dL (8.4-10.2); Carbon Dioxide 26 mmol/L (22-30); Chloride 105 mmol/L (98-107); Glucose 93 mg/dL (74-99); Iron 20 ug/dL (37-170); Non-African American GFR(MDRD) >60 (>60 ml/min/1.73 sqM); Potassium 4.6 mmol/L (3.5-5.1); Sodium 142 mmol/L (137-145); Total Bilirubin 0.4 mg/dL (0.2-1.3); Total Protein 6.4 g/dL (6.3-8.2)
[2016-07-28 17:07] LABS: Vitamin B12 >1000 pg/mL (239-931)
== END | disposition home or self-care (01) ==
LOC: BARWHC3 14:13
PROVIDERS: ATTEND Surgery
DX: R10.9 Unspecified abdominal pain (principal); E66.01 Morbid (severe) obesity due to excess calories; Z79.1 Long term (current) use of non-steroidal anti-inflammatories (NSAID); Z79.899 Other long term (current) drug therapy
CPT/HCPCS: 80053; 82150; 82306; 82607; 82746; 83540; 83690; 84425; 85027; 99211

== ENCOUNTER → 2016-07-30 | Outpatient (CLI) | payer BC ==
[~2016-07-30] MED LIST changes: -DEXAMETHASONE SOD PHOSPHATE 10 MG/ML 1 ML VIAL IV ONE; -MIDAZOLAM 2 MG/2 ML VIAL IV PRN; -SCOPOLAMINE 1.5MG/72HR PATCH TRANSDERM ONE; +SODIUM CHLORIDE 0.9% 1,000 ML IV SCH; -ceFAZolin 2 GM in SODIUM CHLORIDE 0.9% 100 ML IVPB ONE
[2016-07-30 15:24] VITALS: BP 188/76; PULSE 56; RESP 16; TEMP 98.4
== END ==
LOC: PROCWHC3 15:02
PROVIDERS: ATTEND Surgery
DX: E86.0 Dehydration (principal)
CPT/HCPCS: 96360; 96375; J2405

== ENCOUNTER → 2016-07-30 | Outpatient (CLI) | payer BC ==
--- NOTE | 2016-07-30 15:18 | FL ---
EXAMINATION TYPE: FL barium swallow DATE OF EXAM: 07/30/2016 CLINICAL HISTORY: Dysphasia TECHNIQUE: A single contrast esophagram is performed utilizing Omnipaque. A total of 0.7 minutes of fluoroscopic time was utilized during procedure. COMPARISON: None FINDINGS: The esophagus shows normal motility and emptying into the stomach. No evidence of obstruct ion or extravasation. Postsurgical changes noted. IMPRESSION: No significant abnormality is seen to account for patient's symptoms.
--- NOTE | 2016-07-30 15:26 | CT ---
EXAMINATION TYPE: CT abdomen w con DATE OF EXAM: 07/30/2016 HISTORY: Pt states of dysphasia and vomiting x1 week. Hx of gastric sleeve CT DLP: 717.1mGycm Automated Exposure Control for Dose Reduction was Utilized. CONTRAST: CT scan of the abdomen is performed with oral and with IV Contrast, patient injected with 100 mL of O mnipaque 300. COMPARISON: None. FINDINGS: LUNG BASES: There is hyperdense probable calcified 2 mm nodule right lung base on axial image 6 centr ally. LIVER/GB: No significant abnormality is appreciated. PANCREAS: No significant abnormality is seen. SPLEEN: No significant abnormality is seen. ADRENALS: No significant abnormality is seen. KIDNEYS: There are 4-6 calculi scattered throughout the left kidney measuring up to 6 mm in size. The re is diminished cortical medullary uptake on the left with delayed or absent excretion as there is o bstructing 8 mm calculus at left UPJ seen best on coronal image 45, this is causing mild to moderate left-sided pyelocaliectasis. There is single 5 mm calculus anteriorly lower pole level right kidney on axial image 39. No right-si ded obstructing calculus or hydronephrosis is evident. Retroaortic left renal vein is seen which is normal variant. BOWEL: Surgical sutures from gastric sleeve procedure are present. Oral contrast reaches level of cec um. Evaluation of colon is suboptimal. No suspicious small or large bowel dilatation is seen. Mild wa ll thickening left colon is present may be product of nondistention, a colitis should be excluded cli nically. LYMPH NODES: No greater than 1cm abdominal lymph nodes are appreciated. OSSEOUS STRUCTURES: No significant abnormality is seen. OTHER: There is small fat-containing umbilical hernia. IMPRESSION: There is 8 mm calculus at left UPJ causing mild to moderate left-sided hydronephrosis and delayed excretion from left kidney. Urology follow-up advised. Case discussed with ordering surgeon via telephone at time of dictation. A Document Only message has been documented for Pa Villatoro MD in the [employer] system on 07/30/2016 3:24 PM, Message ID [id number].
== END | disposition home or self-care (01) ==
LOC: RADFLMAIN 14:04
PROVIDERS: ATTEND Surgery
DX: N20.1 Calculus of ureter (principal); N13.30 Unspecified hydronephrosis; R13.10 Dysphagia, unspecified
CPT/HCPCS: 74220; 74160; Q9967 ×2; 96360; 96375

== ENCOUNTER 2016-08-03 09:05 | Day surgery (SDC) | payer BC ==
[2016-07-31 12:27] VITALS: BMI 33.2
--- NOTE | 2016-08-03 09:02 | XR ---
EXAMINATION TYPE: XR KUB DATE OF EXAM: 08/03/2016 COMPARISON: 07/30/2016 HISTORY: Renal calculi TECHNIQUE: One view abdominal series FINDINGS: There are approximately 4 calcification seen within the left kidney the largest measuring 7 mm. 11 mm left UPJ calcification seen. There is a punctate calcification overlying the right kidney which is partially obscured by bowel con tent. Retained contrast within the bowel. Surgical clips in the pelvis. Arthropathy of the hips. Bowel gas pattern nonspecific. Previous surgery involving the upper abdomen. IMPRESSION: 1. Bilateral nephrolithiasis with the largest calcification seen involving the left UPJ measuring 11 mm. Findings appear stable from 07/23/2016.
[~2016-08-03 09:05] MED LIST changes: -ONDANSETRON 4 MG/2 ML VIAL IVP ONE; +Pre Op ABX Message 1 EACH MISC MISCELLANE ONE; -SODIUM CHLORIDE 0.9% 1,000 ML IV SCH
[2016-08-03 09:28] VITALS: TEMP 98.2
[2016-08-03] MEDS ORDERED: ONDANSETRON 4 MG/2 ML VIAL IVP ONE (09:28)
[2016-08-03] MEDS ORDERED: LACTATED RINGERS 1,000 ML IV ONE (09:28)
[2016-08-03] MEDS ORDERED: DEXAMETHASONE SOD PHOSPHATE 10 MG/ML 1 ML VIAL IV ONE (09:28)
[2016-08-03] MEDS ORDERED: MIDAZOLAM 2 MG/2 ML VIAL ONE (10:11)
[2016-08-03] MEDS ORDERED: KETAMINE 10 MG/ML 20 ML VIAL ONE (10:11)
[2016-08-03] MEDS ORDERED: FUROSEMIDE 10 MG/ML 2 ML VIAL ONE (10:11)
[2016-08-03] MEDS ORDERED: fentaNYL (PF) 50 MCG/ML 2 ML AMP ONE (10:11)
[2016-08-03] MEDS ORDERED: LIDOCAINE 1% INJ 10MG/ML (20 ML MDV) ONE (10:11)
[2016-08-03] MEDS ORDERED: PROPOFOL 10 MG/ML 20 ML VIAL IV ONE (10:11)
--- NOTE | 2016-08-03 10:52 | P.OP ---
Date of Procedure: 08/03/16 Preoperative Diagnosis: Left ureteral stone Postoperative Diagnosis: Left ureteral stone Procedure(s) Performed: Extracorporeal shockwave lithotripsy left, 2500 shocks at energy level 4/5 Implants: Anesthesia: MAC Surgeon: Jono Adkins Pathology: none sent Condition: stable Disposition: PACU Indications for Procedure: The patient is a 41-year-old female with a 10 x 4 proximal ureteral stone on the left who comes for shockwave lithotripsy Operative Findings: Description of Procedure: Patient is brought to the operating suite and given IV sedation. Stone was seen in 2 views of fluoroscopy. 2500 shocks at energy levels 45 are administered. Stone appears to fracture nicely. The patient's awake and returned recovery in good condition. She was given 10 mg of Lasix.
[2016-08-03 11:30] VITALS: RESP 16
[2016-08-03 11:56] VITALS: BP 186/93; PULSE 54
== END 2016-08-03 11:56 | disposition home or self-care (01) ==
LOC: ORWHC2ENDO 09:05
PROVIDERS: ATTEND Urology
DX: N13.2 Hydronephrosis with renal and ureteral calculous obstruction (principal); I10 Essential (primary) hypertension; F41.9 Anxiety disorder, unspecified; K21.9 Gastro-esophageal reflux disease without esophagitis; Z79.891 Long term (current) use of opiate analgesic; Z79.899 Other long term (current) drug therapy
CPT/HCPCS: 81025; 74000; 50590; J2250; J1100; J1940; J2405; J2001; J3010; J2704

== ENCOUNTER → 2016-08-07 | Outpatient (CLI) | payer BC ==
--- NOTE | 2016-08-07 09:40 | XR ---
Exam: Single supine KUB was obtained the abdomen. TECHNIQUE: Single supine view the abdomen was obtained. HISTORY: Nephrolithiasis. Abdominal pain. COMPARISON: August 03, 2016. FINDINGS: Bilateral nephrolithiasis is again noted. The morphology of the calculus in the proximal left ureter has changed since the previous examination. It appears that there could be 2 separate calculi identif ied. The overall length measures 13 mm. The width is 4 mm. There are also several calculi identified at the UPJ on the left. There appears to be at least 3 separate calculi with in total measure roughly 14 mm. A calculus isn't also identified in the inferior calyx of the left kidney measuring 10 mm. A calculus is again noted in the right renal pelvis measuring 5.4 mm. The contrast identified in the le ft renal pelvis on the previous examination is gone on the current. There are 2 radiopaque foci identified in the pelvis which could be fallopian tube clips. There is a moderate amount stool noted in the colon without evidence of impaction or obstruction. There is a ibeth ency and straightness to the sigmoid colon which is nonspecific. This is a similar appearance to the CT scan obtained on July 30, 2016. Osseous structures are unchanged. IMPRESSION: 1. Bilateral nephrolithiasis again noted. The largest calculus/calculi in the proximal left ureter santos s a different morphology which could be due to the stone breaking up. 2. Moderate amount of stool is noted in the colon. No findings are identified which would suggest imp action or obstruction. Nonspecific hypodense appearance to the descending colon of unknown significan ce.
== END | disposition home or self-care (01) ==
LOC: RADXRMAIN 08:30
PROVIDERS: ATTEND Urology
DX: N20.0 Calculus of kidney (principal)
CPT/HCPCS: 74000

== ENCOUNTER 2016-08-09 13:45 | Emergency (ER) | payer BC ==
[2016-08-09 15:08] VITALS: RESP 16
[2016-08-09] MEDS ORDERED: IOHEXOL 350 MG/ML 25 ML BOTTLE (ORAL USE) PO PRN (15:16)
[2016-08-09] MEDS ORDERED: RX INFO: IV CONTRAST WAS GIVEN 1 EACH MISC MISCELLANE PRN (15:16)
[2016-08-09 15:17] LABS: Basophils # (A) 0.1 k/uL (0-0.2); Basophils % (A) 1 %; CH 27.3; CHCM 32.4; Eosinophils # (A) 0.1 k/uL (0-0.7); Eosinophils % (A) 1 %; HCT 42.2 % (34.0-46.0); HDW 2.43; HGB 13.5 gm/dL (11.4-16.0); Luc # (Auto) 0.18; Luc % (Auto) 2; Lymphocytes # (A) 2.2 k/uL (1.0-4.8); Lymphocytes % (A) 26 %; MCHC 31.9 g/dL (31.0-37.0); MCV 84.6 fL (80.0-100.0); Mean Platelet Volume 7.9; Monocytes # (A) 0.7 k/uL (0-1.0); Monocytes % (A) 8 %; Neutrophils # (A) 5.2 k/uL (1.3-7.7); Neutrophils % (A) 62 %; RBC 4.99 m/uL (3.80-5.40); RDW 14.4 % (11.5-15.5); WBC 8.5 k/uL (3.8-10.6); WBC (Perox) 8.15
[2016-08-09 15:23] LABS: Anion Gap 11 mmol/L; Calcium 9.6 mg/dL (8.4-10.2); Carbon Dioxide 24 mmol/L (22-30); Chloride 108 mmol/L (98-107); Glucose 95 mg/dL (74-99); Non-African American GFR(MDRD) >60 (>60 ml/min/1.73 sqM); Potassium 4.6 mmol/L (3.5-5.1); Sodium 143 mmol/L (137-145); Total Bilirubin 0.7 mg/dL (0.2-1.3)
[2016-08-09 15:24] LABS: ALT 51 U/L (9-52); AST 32 U/L (14-36); Alkaline Phosphatase 80 U/L (38-126); Blood Urea Nitrogen 11 mg/dL (7-17)
[2016-08-09 16:04] LABS: Appearance,Urine Clear (Clear); Bacteria,Urine Rare /hpf; Bilirubin,Urine Negative (Negative); Glucose,Urine (UA) Negative (Negative); Ketones,Urine Trace (Negative); Leukocyte Esterase,Urine Negative (Negative); Mucus,Urine Few /hpf; Nitrite,Urine Negative (Negative); PH, Urine 7.5 (5.0-8.0); Particle Count 3381; Protein,Urine Trace (Negative); RBC,Urine 1 /hpf (0-5); Specific Gravity,Urine 1.017 (1.001-1.035); Squamous Epithelial Cell,Urine 1 /hpf (0-4); UA Billing (MACRO vs. MICRO) MICRO; Urobilinogen,Urine <2.0 mg/dL (<2.0); WBC,Urine 3 /hpf (0-5)
--- NOTE | 2016-08-09 16:49 | CT ---
EXAMINATION TYPE: CT abdomen pelvis w con DATE OF EXAM: 08/09/2016 COMPARISON: Prior CT abdomen pelvis 07/30/2016 HISTORY: Nausea and vomiting x 17 days. Gastric sleeve procedure April 2016 CT DLP: 826.30 mGycm Automated exposure control for dose reduction was used. TECHNIQUE: Helical acquisition of images from the lung bases through the pelvis have been completed. CONTRAST: Performed with Oral Contrast and with IV Contrast, patient injected with 100 mL of Omnipaque 300. FINDINGS: LUNG BASES: No significant abnormality is appreciated. AORTA: No significant abnormality is appreciated. LIVER/GB: No significant abnormality is appreciated. PANCREAS: No significant abnormality is seen. SPLEEN: No significant abnormality is seen. ADRENALS: No significant abnormality is seen. KIDNEYS: Persistent left-sided hydronephrosis with proximal left ureteral calculus is present measuri ng approximately 6 x 9 mm. Some perinephric fluid present on the left posteriorly. Diminished nephrog jesse again noted on the left. There is a smaller calcification also suspected in the ureter at this level. An additional calcificat ion present in the posterior renal pelvis on the left, nonobstructive calculus present in the inferio r posterior calyx on the left is stable and there is a calcification present at the lower pole of the left kidney not seen on prior measuring 9 to 10 mm. Right-sided renal calcification again noted is n onobstructive. There is a retroaortic left renal vein. REPRODUCTIVE ORGANS: Flovent tubal ligation clips are present. Uterus may be fibroid. BOWEL: Postop changes are noted to the stomach as on prior exam. Patient is status post gastric slee ve. Proximal duodenum, distal stomach shows some possible wall thickening. FREE AIR: No Free Air visible. ASCITES: None visible. PELVIC ADENOPATHY: None visualized. RETROPERITONEAL ADENOPATHY: No Retroperitoneal Adenopathy visible. URINARY BLADDER: No significant abnormality is seen. OSSEOUS STRUCTURES: No significant abnormality is seen. IMPRESSION: FINDINGS ARE SIMILAR TO PRIOR EXAM. PROXIMAL URETERAL CALCULI OR OBSTRUCTIVE. THERE MAY BE FORNICEAL RUPTURE. Additional findings above.
[2016-08-09] MEDS ORDERED: ONDANSETRON 4 MG/2 ML VIAL IVP STA (17:46)
[2016-08-09] MEDS ORDERED: SODIUM CHLORIDE 0.9% 1,000 ML IV ONE (17:46)
--- NOTE | 2016-08-09 18:19 | ED ---
Nausea/Vomiting/Diarrhea HPI - General Chief complaint: Nausea/Vomiting/Diarrhea Stated complaint: vomiting Source: patient Mode of arrival: ambulatory Limitations: no limitations - History of Present Illness Initial comments: 41-year-old female with a recent history of a aspect sleeve placement by Dr. Villatoro on April 24 presented for evaluation of intractable nausea and vomiting. She states since July 22 she has been having nausea and vomiting and cramping to her lower abdomen. She states that she was also having some back/ flank pain and on 07/[address] and barium swallow which showed no obstruction however there was a kidney stone with hydronephrosis. She underwent lithotripsy on 08/[address] Adkins (although she sees Dr. Wyatt) but states that they were uncertain if it was successful and has follow-up this coming Wednesday. All in all she states that she has had intractable nausea and vomiting for the last 17 days without any relief. Tried to consume even simple things such as water causes her to immediately retch them up and she consistently has retching even when she is not trying to consume oral food/ liquids. - Related Data Previous Rx's Medication Instructions Recorded Omeprazole 20 mg PO DAILY #90 cap 04/24/16 Ondansetron Odt [Zofran ODT] 4 mg PO Q8HR PRN #20 tab 07/23/16 Tamsulosin [Flomax] 0.4 mg PO DAILY #7 cap 08/03/16 Allergies Allergy/AdvReac Type Severity Reaction Status Date / Time No Known Allergies Allergy Verified 08/09/16 14:28 Review of Systems ROS Statement: Those systems with pertinent positive or pertinent negative responses have been documented in the HPI. ROS Other: All systems not noted in ROS Statement are negative. Constitutional: Denies: fever, chills Eyes: Denies: eye pain, vision change ENT: Denies: ear pain, throat pain Respiratory: Denies: cough, dyspnea Cardiovascular: Denies: chest pain, palpitations, dyspnea on exertion Endocrine: Denies: fatigue, polydipsia Gastrointestinal: Reports: nausea, vomiting. Denies: abdominal pain Genitourinary: Denies: urgency, dysuria Musculoskeletal: Denies: back pain, joint swelling Skin: Denies: rash, lesions Neurological: Denies: headache, weakness Psychiatric: Denies: anxiety, depression Hematological/Lymphatic: Denies: easy bleeding, easy bruising Past Medical History Past Medical History: Hypertension Additional Past Medical History / Comment(s): Hx of kidney stones History of Any Multi-Drug Resistant Organisms: None Reported Past Surgical History: Bariatric Surgery, Section, Tonsillectomy, Tubal Ligation, Uterine Ablation Additional Past Surgical History / Comment(s): GASTRIC SLEEVE 04-24-16 Past Anesthesia/Blood Transfusion Reactions: No Reported Reaction Past Psychological History: No Psychological Hx Reported, Anxiety Smoking Status: Never smoker - Past Family History Mother Family Medical History: Cancer Additional Family Medical History / Comment(s): lung, from lung cancer Father Family Medical History: Cancer Additional Family Medical History / Comment(s): throat and lung cancer General Exam Limitations: no limitations General appearance: alert, in no apparent distress Head exam: Present: atraumatic, normocephalic, normal inspection Eye exam: Present: normal appearance, PERRL, EOMI. Absent: scleral icterus, conjunctival injection, periorbital swelling ENT exam: Present: normal exam, mucous membranes moist Neck exam: Present: normal inspection. Absent: tenderness, meningismus, lymphadenopathy Respiratory exam: Present: normal lung sounds bilaterally. Absent: respiratory distress, wheezes, rales, rhonchi, stridor Cardiovascular Exam: Present: regular rate, normal rhythm, normal heart sounds. Absent: systolic murmur, diastolic murmur, rubs, gallop, clicks GI/Abdominal exam: Present: soft, normal bowel sounds. Absent: distended, tenderness, guarding, rebound, rigid Rectal exam: Present: deferred Extremities exam: Present: normal inspection, full ROM, normal capillary refill. Absent: tenderness, pedal edema, joint swelling, calf tenderness Back exam: Present: normal inspection Neurological exam: Present: alert, oriented X3, CN II-XII intact Psychiatric exam: Present: normal affect, normal mood Skin exam: Present: warm, dry, intact, normal color. Absent: rash Course Vital Signs 08/09/16 08/09/16 08/09/16 14:06 14:54 16:50 Temperature 97.8 F 99.2 F Pulse Rate 93 57 L 59 L Respiratory 20 16 16 Rate Blood Pressure 210/99 194/88 178/80 O2 Sat by Pulse 97 96 98 Oximetry 08/09/16 18:47 Temperature 98.9 F Pulse Rate 58 L Respiratory 16 Rate Blood Pressure 145/63 O2 Sat by Pulse 98 Oximetry Medical Decision Making - Medical Decision Making 41-year-old female with a recent history of gastric sleeve placement presented for evaluation of intractable nausea and vomiting for the last 17 days. His ago she had a CT with oral contrast of her abdomen pelvis as well as a barium swallow which showed no obstruction. She states she is unable to keep any amount of by mouth intake down. On physical examination she is in no apparent distress and there is no abdominal tenderness to palpation. The case was discussed with Dr. Kruger who requested that a repeat CAT scan with by mouth contrast be obtained. This was done and showed no acute process or changes from previous. Results were discussed with Dr. Kruger who requested that the patient be followed as an outpatient tomorrow and have her call the bariatric office. The patient was informed of these results and through shared decision making it was determined that she would be discharged with instructions to follow-up as an outpatient but to return if her symptoms should worsen or persist. The patient acknowledged an understanding of this information and agreed with this plan of care. - Lab Data Result diagrams: 08/09/16 15:00 08/09/16 15:00 Lab Results 08/09/16 08/09/16 08/09/16 Range/Units 15:00 15:00 15:45 WBC 8.5 (3.8-10.6) k/uL RBC 4.99 (3.80-5.40) m/uL Hgb 13.5 (11.4-16.0) gm/dL Hct 42.2 (34.0-46.0) % MCV 84.6 (80.0-100.0) fL MCH 27.0 (25.0-35.0) pg MCHC 31.9 (31.0-37.0) g/dL RDW 14.4 (11.5-15.5) % Plt Count 286 (150-450) k/uL Neutrophils % 62 % Lymphocytes % 26 % Monocytes % 8 % Eosinophils % 1 % Basophils % 1 % Neutrophils # 5.2 (1.3-7.7) k/uL Lymphocytes # 2.2 (1.0-4.8) k/uL Monocytes # 0.7 (0-1.0) k/uL Eosinophils # 0.1 (0-0.7) k/uL Basophils # 0.1 (0-0.2) k/uL Sodium 143 (137-145) mmol/L Potassium 4.6 (3.5-5.1) mmol/L Chloride 108 H (98-107) mmol/L Carbon Dioxide 24 (22-30) mmol/L Anion Gap 11 mmol/L BUN 11 (7-17) mg/dL Creatinine 0.86 (0.52-1.04) mg/dL Est GFR (MDRD) Af Amer >60 (>60 ml/min/1.73 sqM) Est GFR (MDRD) Non-Af >60 (>60 ml/min/1.73 sqM) Glucose 95 (74-99) mg/dL Calcium 9.6 (8.4-10.2) mg/dL Total Bilirubin 0.7 (0.2-1.3) mg/dL AST 32 (14-36) U/L ALT 51 (9-52) U/L Alkaline Phosphatase 80 (38-126) U/L Total Protein 7.0 (6.3-8.2) g/dL Albumin 4.2 (3.5-5.0) g/dL Lipase 88 (23-300) U/L Urine Color Urine Appearance (Clear) Urine pH (5.0-8.0) Ur Specific [place] (1.001-1.035) Urine Protein (Negative) Urine Glucose (UA) (Negative) Urine Ketones (Negative) Urine Blood (Negative) Urine Nitrite (Negative) Urine Bilirubin (Negative) Urine Urobilinogen (<2.0) mg/dL Ur Leukocyte Esterase (Negative) Urine RBC (0-5) /hpf Urine WBC (0-5) /hpf Ur Squamous Epith Cells (0-4) /hpf Urine Bacteria (None) /hpf Urine Mucus (None) /hpf Urine HCG, Qual Not Detected (Not Detectd) 08/09/16 Range/Units 15:45 WBC (3.8-10.6) k/uL RBC (3.80-5.40) m/uL Hgb (11.4-16.0) gm/dL Hct (34.0-46.0) % MCV (80.0-100.0) fL MCH (25.0-35.0) pg MCHC (31.0-37.0) g/dL RDW (11.5-15.5) % Plt Count (150-450) k/uL Neutrophils % % Lymphocytes % % Monocytes % % Eosinophils % % Basophils % % Neutrophils # (1.3-7.7) k/uL Lymphocytes # (1.0-4.8) k/uL Monocytes # (0-1.0) k/uL Eosinophils # (0-0.7) k/uL Basophils # (0-0.2) k/uL Sodium (137-145) mmol/L Potassium (3.5-5.1) mmol/L Chloride (98-107) mmol/L Carbon Dioxide (22-30) mmol/L Anion Gap mmol/L BUN (7-17) mg/dL Creatinine (0.52-1.04) mg/dL Est GFR (MDRD) Af Amer (>60 ml/min/1.73 sqM) Est GFR (MDRD) Non-Af (>60 ml/min/1.73 sqM) Glucose (74-99) mg/dL Calcium (8.4-10.2) mg/dL Total Bilirubin (0.2-1.3) mg/dL AST (14-36) U/L ALT (9-52) U/L Alkaline Phosphatase (38-126) U/L Total Protein (6.3-8.2) g/dL Albumin (3.5-5.0) g/dL Lipase (23-300) U/L Urine Color Yellow Urine Appearance Clear (Clear) Urine pH 7.5 (5.0-8.0) Ur Specific [place] 1.017 (1.001-1.035) Urine Protein Trace H (Negative) Urine Glucose (UA) Negative (Negative) Urine Ketones Trace H (Negative) Urine Blood Moderate H (Negative) Urine Nitrite Negative (Negative) Urine Bilirubin Negative (Negative) Urine Urobilinogen <2.0 (<2.0) mg/dL Ur Leukocyte Esterase Negative (Negative) Urine RBC 1 (0-5) /hpf Urine WBC 3 (0-5) /hpf Ur Squamous Epith Cells 1 (0-4) /hpf Urine Bacteria Rare H (None) /hpf Urine Mucus Few H (None) /hpf Urine HCG, Qual (Not Detectd) 08/10/16 03:15 Sinus bradycardia with ventricular rate of 53, MANUEL 150, QRS 76, QT/QTC 414/388. Disposition Clinical Impression: Nausea and vomiting Disposition: HOME SELF-CARE Condition: Stable Instructions: Acute Nausea and Vomiting (ED) Additional Instructions: Please call the bariatric office in the morning. Dr. Kruger has been informed of you results and recommends outpatient management. If anything should change in the meantime her symptoms should worsen or persist please proceed back to this ER or another for further treatment and evaluation. Referrals: Randy Harrell MD [Primary Care Provider] - 1-2 days Time of Disposition: 18:18
[2016-08-09 18:49] VITALS: BP 145/63; PULSE 58; TEMP 98.9
== END 2016-08-09 18:47 | disposition home or self-care (01) ==
LOC: EC 13:45
DX: R11.2 Nausea with vomiting, unspecified (principal); R19.7 Diarrhea, unspecified; R10.30 Lower abdominal pain, unspecified; Z87.442 Personal history of urinary calculi
CPT/HCPCS: 99284; 96374; 96361; 36415; 93005; 80053; 83690; 85025; 81001; 81025; 74177; J2405; Q9967

== ENCOUNTER 2016-08-11 13:29 | Day surgery (SDC) | payer BC ==
[2016-08-10 13:07] VITALS: BMI 31.4
[~2016-08-11 13:29] MED LIST changes: +LACTATED RINGERS 1,000 ML IV SCH; -Pre Op ABX Message 1 EACH MISC MISCELLANE ONE
[2016-08-11 13:38] VITALS: RESP 16; TEMP 98.3
[2016-08-11] MEDS ORDERED: LIDOCAINE 1% 20 ML VIAL (10MG/ML) FOR IV START INTRADERMA ONE (13:43)
[2016-08-11] MEDS ORDERED: LIDOCAINE 1% INJ 10MG/ML (20 ML MDV) ONE (14:08)
[2016-08-11] MEDS ORDERED: PROPOFOL 10 MG/ML 20 ML VIAL IV ONE (14:08)
--- NOTE | 2016-08-11 14:12 | P.GSHP ---
History of Present Illness H&P Date: 08/11/16 Chief Complaint: Intractable nausea Patient is well-known to our service. She underwent a sleeve gastrectomy 3 months ago. Recently she has had progressive complaints of dysphagia and bad nausea. She had an outpatient workup and was found to have a obstructing left ureteral stone. Despite recent lithotripsy her symptoms are persisting. She is having very difficult time with intake of greater than 10 ounces per day. Recent upper GI showed no obstruction. Multiple CAT scans show no definite abnormalities at the sleeve site. This last CAT scan did show some thickening of the pyloric region. Past Medical History Past Medical History: Hypertension Additional Past Medical History / Comment(s): Hx of kidney stones, nausea/ vomting History of Any Multi-Drug Resistant Organisms: None Reported Past Surgical History: Bariatric Surgery, Section, Tonsillectomy, Tubal Ligation, Uterine Ablation Additional Past Surgical History / Comment(s): GASTRIC SLEEVE 04-24-16, lithotripsy 08/03/16 Past Anesthesia/Blood Transfusion Reactions: No Reported Reaction Smoking Status: Never smoker - Past Family History Mother Family Medical History: Cancer Additional Family Medical History / Comment(s): lung, from lung cancer Father Family Medical History: Cancer Additional Family Medical History / Comment(s): throat and lung cancer Medications and Allergies Allergies Allergy/AdvReac Type Severity Reaction Status Date / Time No Known Allergies Allergy Verified 08/11/16 13:35 Surgical - Exam Vital Signs Temp Pulse Resp BP Pulse Ox 98.3 F 73 16 180/97 99 08/11/16 13:35 08/11/16 13:35 08/11/16 13:35 08/11/16 13:35 08/11/16 13:35 Physical exam: General: Well-developed, well-nourished HEENT: Normocephalic, sclerae nonicteric Abdomen: Nontender, nondistended Extremities: No edema Neuro: Alert and oriented Assessment and Plan (1) Morbid obesity Status: Acute (2) Nausea and vomiting Narrative/Plan: Will proceed with upper endoscopy at this time. Status: Acute
--- NOTE | 2016-08-11 14:22 | P.PCN ---
Date of Procedure: 08/11/16 Preoperative Diagnosis: Postoperative Diagnosis: Procedure(s) Performed: Preoperative Dx: Dysphagia, intractable nausea Postoperative Dx: Mild gastritis Procedure: EGD with Bx Anesthesia: Sedation Endoscopist: Dr. Villatoro Specimens: Duodenum, antrum Endoscopic Procedure: The patient was on the endoscopy table in the left decubitus position. The Olympus gastroscope was inserted into the oropharynx and passed under direct visualization to the region of the third portion of the duodenum. From that point the scope was slowly withdrawn inspecting all surfaces carefully. There were no neoplastic inflammatory or polypoid lesions throughout the duodenum. A biopsy of the duodenum took place. The pylorus was widely patent. The stomach was carefully inspected. There was gastritis present. A biopsy of the antrum took place to rule out H. pylori. The patient' s sleeve prevented the retroflexion of the scope. The course, angulation, and appearance of the sleeve appeared normal. The staple line itself appeared intact with no evidence of dehiscence. The esophagus was then carefully examined. There were no neoplastic inflammatory or polypoid lesions throughout the visualized esophagus. The patient was then taken to the recovery room in stable condition per anesthesia guidelines. Recommendations: Begin Reglan and liquid Carafate. Patient may require outpatient IV therapy. We'll finish a 2 L saline bolus while in recovery. Implants: Indications for Procedure: Operative Findings: Description of Procedure:
[2016-08-11 16:05] VITALS: BP 158/73; PULSE 58
== END 2016-08-11 17:22 | disposition home or self-care (01) ==
LOC: ORWHC2ENDO 13:29
PROVIDERS: ATTEND Surgery
DX: K29.50 Unspecified chronic gastritis without bleeding (principal); I10 Essential (primary) hypertension; K21.9 Gastro-esophageal reflux disease without esophagitis; E66.01 Morbid (severe) obesity due to excess calories; Z68.31 Body mass index [BMI] 31.0-31.9, adult; Z79.899 Other long term (current) drug therapy; Z98.84 Bariatric surgery status; Z98.51 Tubal ligation status
CPT/HCPCS: 43239; 81025; 88305; 88342; J2001; J2704

== ENCOUNTER → 2016-08-13 | Outpatient (CLI) | payer BC ==
--- NOTE | 2016-08-13 16:04 | XR ---
EXAMINATION TYPE: XR KUB DATE OF EXAM: 08/13/2016 CLINICAL DATA: 41-year-old female recheck left ureteral stone, lithotripsy 2 weeks ago, persistent p ain, [facility] COMPARISON: 08/09/2016 and 08/07/2016 FINDINGS: Bilateral nephrolithiasis is present measuring up to 1.1 cm on the left and 4 mm on the right. There is a 2.4 cm length of Steinstrasse projecting at the left mid abdomen suspected to be in the proximal to mid left ureter. Some of the previously seen calculi in the expected region of the left renal pel vis have likely moved into the ureter. Pelvic phlebolith are noted. Bilateral tubal ligation clips. S table line along the GE junction stomach. 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
== END ==
LOC: RADXRMAIN 14:02
PROVIDERS: ATTEND Urology
DX: N20.1 Calculus of ureter (principal)
CPT/HCPCS: 74000

== ENCOUNTER → 2016-08-21 | Outpatient (CLI) | payer BC ==
--- NOTE | 2016-08-21 14:11 | XR ---
EXAMINATION TYPE: XR KUB DATE OF EXAM: 08/21/2016 CLINICAL DATA: 41 year-old female left ureteral calculus, lithotripsy on 08/17/2016 and 08/03/2016, [facility] COMPARISON: 08/13/2016 FINDINGS: Nonobstructive bowel gas pattern. Mild scattered stool. There is a residual small 4 mm calculus in the left kidney. Extensive bowel content limits visualizat ion of the left kidney. Stable 4 mm calculus within the right kidney. Previously seen left ureteral S teinstrasse is no longer apparent. Stable phleboliths on both sides of the pelvis. Bilateral tubal li gation clips. Surgical material below the GE junction. IMPRESSION: 1. Previously seen left ureteral Steinstrasse is no longer apparent. 2. Also, decrease in the left renal calculi with a small residual 4 mm calculus. 3. Stable 4 mm right renal calculus.
== END | disposition home or self-care (01) ==
LOC: RADXRMAIN 13:20
PROVIDERS: ATTEND Urology
DX: N20.0 Calculus of kidney (principal)
CPT/HCPCS: 74000

== ENCOUNTER → 2016-08-25 | Outpatient (CLI) | payer BC ==
[2016-08-25 14:36] VITALS: BP 151/78; PULSE 85; RESP 20; TEMP 98.4; BMI 31.6
--- NOTE | 2016-08-25 14:39 | P.BASOAP ---
Subjective Principal diagnosis: Morbid obesity Patient doing much better at this time. She is now tolerating both solids and liquids. She was finally able to pass most of her left-sided kidney stones and we believe that that wasn't large reason for her ongoing nausea and vomiting. No abdominal pain. She has lost 12 additional pounds in the last 1 month. She actually was down 16 pounds but gained back for recently was likely in part related to dehydration. Weight currently 167. She had a three-month lab work last visit. She stopped taking her vitamins but just recently resumed. Her iron was somewhat low and that was discussed today in the office. Objective - Vital Signs Vital signs: Vital Signs Temp 98.4 F 08/25/16 14: Pulse 85 08/25/16 14:17 Resp 20 08/25/16 14:17 BP 151/78 08/25/16 14:17 Pulse Ox Intake & Output 08/24/16 08/25/16 08/25/16 18:59 06:59 18:59 Weight 76.022 kg - Exam Abdomen: Soft, nondistended, nontender Assessment/Plan (1) Morbid obesity Narrative/Plan: Continue exercise and dietary regimen. Resume multivitamins. Continue antiacid therapy. Follow-up 6-8 weeks and will plan six-month lab work at that time. Recheck iron levels and at that time. Plan: Date: 08/25/16 Initial Weight: 108.726 kg Initial BMI: 45.3 Current Weight: 76.022 kg Current BMI: 31.6 Type of Surgery: Total Volume in Band: Previous Volume: Volume Removed: Volume Added: Band Size:
== END | disposition home or self-care (01) ==
LOC: BARWHC3 13:54
PROVIDERS: ATTEND Surgery
DX: E66.01 Morbid (severe) obesity due to excess calories (principal); Z68.31 Body mass index [BMI] 31.0-31.9, adult
CPT/HCPCS: 97803; 99211

== ENCOUNTER → 2016-11-14 | Outpatient (CLI) | payer BC ==
[2016-11-14 10:57] LABS: CH 27.9; CHCM 31.4; HCT 39.1 % (34.0-46.0); HDW 2.45; HGB 12.6 gm/dL (11.4-16.0); Hypochromasia Slight; MCH 28.7 pg (25.0-35.0); MCHC 32.1 g/dL (31.0-37.0); MCV 89.3 fL (80.0-100.0); Mean Platelet Volume 7.5; RBC 4.38 m/uL (3.80-5.40); RDW 14.4 % (11.5-15.5); WBC 5.7 k/uL (3.8-10.6)
[2016-11-14 11:32] LABS: ALT 44 U/L (9-52); AST 20 U/L (14-36); Alkaline Phosphatase 69 U/L (38-126); Anion Gap 7 mmol/L; Blood Urea Nitrogen 11 mg/dL (7-17); Carbon Dioxide 26 mmol/L (22-30); Chloride 106 mmol/L (98-107); Glucose 95 mg/dL (74-99); Iron 57 ug/dL (37-170); Non-African American GFR(MDRD) >60 (>60 ml/min/1.73 sqM); Potassium 4.4 mmol/L (3.5-5.1); Sodium 139 mmol/L (137-145); Total Bilirubin 0.4 mg/dL (0.2-1.3); Total Protein 6.2 g/dL (6.3-8.2)
[2016-11-14 12:19] LABS: Vitamin B12 538 pg/mL (239-931)
== END | disposition home or self-care (01) ==
LOC: LABWHC1 09:40
PROVIDERS: ATTEND Surgery
DX: E66.01 Morbid (severe) obesity due to excess calories (principal); D50.8 Other iron deficiency anemias; E55.9 Vitamin D deficiency, unspecified
CPT/HCPCS: 36415; 80053; 82306; 82607; 82746; 83540; 84425; 85027

== ENCOUNTER → 2017-05-21 | Outpatient (CLI) | payer BC ==
[2017-05-21 13:22] LABS: HCT 40.4 % (34.0-46.0); HGB 13.4 gm/dL (11.4-16.0); MCH 27.5 pg (25.0-35.0); MCHC 33.1 g/dL (31.0-37.0); MCV 83.1 fL (80.0-100.0); Mean Platelet Volume 7.2; Platelet Count 286 k/uL (150-450); RBC 4.86 m/uL (3.80-5.40); RDW 12.8 % (11.5-15.5); WBC 7.8 k/uL (3.8-10.6)
[2017-05-21 13:27] LABS: ALT 27 U/L (9-52); AST 16 U/L (14-36); Albumin 4.1 g/dL (3.5-5.0); Alkaline Phosphatase 69 U/L (38-126); Anion Gap 11 mmol/L; Blood Urea Nitrogen 20 mg/dL (7-17); Calcium 9.9 mg/dL (8.4-10.2); Carbon Dioxide 26 mmol/L (22-30); Chloride 104 mmol/L (98-107); Glucose 89 mg/dL (74-99); Potassium 4.5 mmol/L (3.5-5.1); Sodium 141 mmol/L (137-145); Total Bilirubin 0.3 mg/dL (0.2-1.3); Total Protein 6.6 g/dL (6.3-8.2)
[2017-05-21 19:23] LABS: Vitamin D 25 Hydroxy 16.5 ng/mL (30.0-100.0)
== END | disposition home or self-care (01) ==
LOC: LABWHC1 12:43
PROVIDERS: ATTEND Surgery
DX: E66.01 Morbid (severe) obesity due to excess calories (principal); D50.8 Other iron deficiency anemias; E55.9 Vitamin D deficiency, unspecified; K90.89 Other intestinal malabsorption
CPT/HCPCS: 36415; 80053; 82306; 82607; 83540; 85027

== ENCOUNTER → 2017-05-25 | Outpatient (CLI) | payer BC ==
[2017-05-25 14:57] VITALS: BP 117/74; PULSE 62; TEMP 98.1
--- NOTE | 2017-05-25 16:16 | P.BASOAP ---
Subjective Progress Note Date: 05/25/17 Principal diagnosis: Morbid obesity Patient doing well at this time. Last visit in October. She is just past her 1 year anniversary. She had stopped taking her vitamins but we will be starting her vitamin D and multivitamin. No recent kidney stones. Her vitamin D level on May 21 was 16.5. She plans increase her fluid intake. Slight weight gain recently. Still exercising 3 times per week. Minimal heartburn symptoms. Not taking antacids. Objective - Vital Signs Vital signs: Vital Signs Temp 98.1 F 05/25/17 14:50 Pulse 62 05/25/17 14:50 Resp BP 117/74 05/25/17 14:50 Pulse Ox Intake & Output 05/24/17 05/25/17 05/25/17 18:59 06:59 18:59 Weight 72.167 kg - Exam Abdomen: Soft, nontender, nondistended Assessment/Plan (1) Morbid obesity Narrative/Plan: Continue dietary and exercise regimen. Increase fluid intake. Resume multivitamin and vitamin D. Repeat labs in November. Follow-up at that time. Plan: Date: 05/25/17 Initial Weight: 108.726 kg Initial BMI: 45.3 Current Weight: 72.167 kg Current BMI: 30.0 Type of Surgery: Total Volume in Band: Previous Volume: Volume Removed: Volume Added: Band Size:
== END ==
LOC: BARWHC3 13:34
PROVIDERS: ATTEND Surgery
DX: E66.01 Morbid (severe) obesity due to excess calories (principal); Z68.30 Body mass index [BMI] 30.0-30.9, adult
CPT/HCPCS: 97803; 99211

== ENCOUNTER → 2018-04-18 | Outpatient (CLI) | payer BC ==
--- NOTE | 2018-04-20 09:13 | MM ---
Reason for exam: screening (asymptomatic). Last mammogram was performed 2 years and 2 months ago. Physical Findings: A clinical breast exam by your physician is recommended on an annual basis and results should be correlated with mammographic findings. MG 3D Screening Mammo W/Cad Bilateral CC and MLO view(s) were taken. Prior study comparison: February 28, 2016, bilateral MG 3d screening mammo w/cad. January 02, 2015, left breast US breast workup limited LT. December 20, 2014, bilateral MG screening mammo w CAD. The breast tissue is heterogeneously dense. This may lower the sensitivity of mammography. There is chronic nodularity in the right breast medially and in the left breast laterally. No significant changes when compared with prior studies. ASSESSMENT: Benign, BI-RAD 2 RECOMMENDATION: Routine screening mammogram of both breasts in 1 year.
== END | disposition home or self-care (01) ==
LOC: RADMAMWWP 11:25
PROVIDERS: ATTEND Family Medicine
DX: Z12.31 Encounter for screening mammogram for malignant neoplasm of breast (principal)
CPT/HCPCS: 77063; 77067

== ENCOUNTER → 2018-04-25 | Outpatient (CLI) | payer BC ==
[2018-04-25 08:30] LABS: Basophils # (A) 0.1 k/uL (0-0.2); Basophils % (A) 2 %; Eosinophils # (A) 0.1 k/uL (0-0.7); Eosinophils % (A) 1 %; HCT 40.8 % (34.0-46.0); HGB 13.1 gm/dL (11.4-16.0); Lymphocytes # (A) 2.1 k/uL (1.0-4.8); Lymphocytes % (A) 40 %; MCH 27.5 pg (25.0-35.0); MCHC 32.2 g/dL (31.0-37.0); MCV 85.4 fL (80.0-100.0); Mean Platelet Volume 7.6; Monocytes # (A) 0.3 k/uL (0-1.0); Monocytes % (A) 6 %; Neutrophils # (A) 2.6 k/uL (1.3-7.7); Neutrophils % (A) 50 %; Platelet Count 260 k/uL (150-450); RBC 4.77 m/uL (3.80-5.40); RDW 13.7 % (11.5-15.5); WBC 5.2 k/uL (3.8-10.6)
[2018-04-25 08:47] LABS: Anion Gap 8 mmol/L; Blood Urea Nitrogen 13 mg/dL (7-17); Calcium 9.1 mg/dL (8.4-10.2); Carbon Dioxide 24 mmol/L (22-30); Chloride 107 mmol/L (98-107); Glucose 101 mg/dL (74-99); Potassium 4.6 mmol/L (3.5-5.1); Sodium 139 mmol/L (137-145)
== END | disposition home or self-care (01) ==
LOC: LABPAT 07:36
PROVIDERS: ATTEND Obstetrics & Gynecology
DX: Z01.812 Encounter for preprocedural laboratory examination (principal)
CPT/HCPCS: 80048; 85025

== ENCOUNTER 2018-04-28 05:53 | Day surgery (SDC) | payer BC ==
--- NOTE | 2018-04-27 19:55 | P.HPOB ---
History of Present Illness H&P Date: 04/27/18 Chief Complaint: Menorrhagia: Failed NovaSure And she is a 43-year-old female who has heavy vaginal bleeding. She underwent a NovaSure procedure about 6 years ago but she has returned to having heavy clots and severe pain with her menses and significant cramping. Laboratory studies and ultrasounds were ordered and she is noted of a 1.7 cm fibroid and some slight thickening of the endometrium. Due to findings and prior NovaSure, she is scheduled for a robotic-assisted laparoscopic hysterectomy possible ASHLEY possible BSO. Risks/benefits/alternatives to this procedure were discussed with the patient in detail and all questions were answered for her prior to proceedin g to the operating room. On physical exam vital signs are stable and afebrile. Heart regular, lungs clear, extremities without pain. Abdomen soft nontender. Positive bowel sounds are noted. Pelvic exam is otherwise unremarkable. Assessment: Menorrhagia with failed NovaSure Plan da Sanchez hysterectomy possible ASHLEY and possible BSO. Past Medical History Past Medical History: Hypertension Additional Past Medical History / Comment(s): PITUITARY TUMOR, Hx of kidney stones, Had Lithotripsy x2 History of Any Multi-Drug Resistant Organisms: None Reported Past Surgical History: Bariatric Surgery, Section, Tonsillectomy, Tubal Ligation, Uterine Ablation Additional Past Surgical History / Comment(s): GASTRIC SLEEVE 04-24-16, lithotripsy X2 Past Anesthesia/Blood Transfusion Reactions: No Reported Reaction Smoking Status: Never smoker - Past Family History Mother Family Medical History: Cancer Additional Family Medical History / Comment(s): lung, from lung cancer Father Family Medical History: Cancer Additional Family Medical History / Comment(s): throat and lung cancer Medications and Allergies Home Medications Medication Instructions Recorded Confirmed Type Phentermine HCl [Adipex-P] 37.5 mg PO DAILY 04/19/18 04/19/18 History Pituitary Tumor Med 1 tab PO TUFR 04/19/18 History Xanax 1 tab PO DIRECTED PRN 04/19/18 History Allergies Allergy/AdvReac Type Severity Reaction Status Date / Time No Known Allergies Allergy Verified 04/19/18 17:08 Exam Osteopathic Statement: *. No significant issues noted on an osteopathic structural exam other than those noted in the History and Physical/Consult. - OBG Physical Exam Breast: both: normal (no masses) Abdomen: bowel sounds normal, no diffuse tenderness, no bruit present, no guarding noted, no hepatomegaly, no splenomegaly, no mass Vulva: both: normal Vagina: normal moisture, no discharge Cervix: no lesion, no discharge Uterus: normal size, normal contour Adnexa: both: normal Anus/Rectum: normal perianal skin, no rectal mass, no hemorrhoids, heme negative
[~2018-04-28 05:53] MED LIST changes: +DEXAMETHASONE SOD PHOSPHATE 10 MG/ML 1 ML VIAL IV ONE; +HYDROmorphone 0.5 MG/0.5 ML SYRINGE IVP PRN; -LACTATED RINGERS 1,000 ML IV SCH; +LIDOCAINE 1% 20 ML VIAL (10MG/ML) FOR IV START INTRADERMA PRN; +ONDANSETRON 4 MG/2 ML VIAL IVP ONE; +SCOPOLAMINE 1.5MG/72HR PATCH TRANSDERM ONE; +ceFAZolin IN SWFI 2 GM/20 ML SYRINGE IVP ONE
[2018-04-28] MEDS: LACTATED RINGERS 1,000 ML IV SCH ×3 (06:51→23:18)
[2018-04-28] MEDS ORDERED: GLYCOPYRROLATE 0.2 MG/ML 2 ML VIAL ONE (07:30)
[2018-04-28] MEDS ORDERED: MIDAZOLAM 2 MG/2 ML VIAL ONE (07:30)
[2018-04-28] MEDS ORDERED: LIDOCAINE 1% INJ 10MG/ML (20 ML MDV) ONE (07:30)
[2018-04-28] MEDS ORDERED: PROPOFOL 10 MG/ML 20 ML VIAL IV ONE (07:30)
[2018-04-28] MEDS ORDERED: INDOCYANINE GREEN 25 MG VIAL IV ONE (07:30)
[2018-04-28] MEDS ORDERED: fentaNYL (PF) 50 MCG/ML 2 ML AMP ONE (07:30)
[2018-04-28] MEDS ORDERED: ACETAMINOPHEN IV (For NPO) 1,000 MG/100 ML VIAL ONE (07:30)
[2018-04-28] MEDS ORDERED: KETOROLAC 30 MG/ML 1 ML VIAL ONE (07:30)
[2018-04-28] MEDS ORDERED: NEOSTIGMINE 1 MG/ML 10 ML VIAL ONE (07:30)
[2018-04-28] MEDS ORDERED: HYDROmorphone (PF) 1 MG/ML ONE (07:30)
[2018-04-28] MEDS ORDERED: METOPROLOL TARTRATE 5 MG/5 ML VIAL IVP ONE (07:30)
[2018-04-28] MEDS ORDERED: ROCURONIUM BROMIDE 10 MG/ML 10 ML VIAL IV ONE (07:30)
[2018-04-28] MEDS ORDERED: LABETALOL 5 MG/ML VIAL MDV ONE (07:30)
[2018-04-28] MEDS ORDERED: BUPIVACAINE (PF) 0.25% 30 ML VIAL SQ ONE (07:32)
[2018-04-28] MEDS ORDERED: LACTATED RINGERS 1,000 ML IV ONE (08:34)
--- NOTE | 2018-04-28 10:11 | P.OP ---
Date of Procedure: 04/28/18 Preoperative Diagnosis: Menorrhagia: Failed NovaSure: Pelvic pain Postoperative Diagnosis: Same with omental adhesion and adhesion of the left adnexa to the pelvic sidewall Procedure(s) Performed: Robotic-assisted laparoscopic hysterectomy with lysis of adhesions Anesthesia: GINNY Surgeon: Ras Ashford Client Associate #1: Sera Avila Estimated Blood Loss (ml): 125 IV fluids (ml): 1,800 Urine output (ml): 700 Pathology: other (Uterus and cervix) Condition: stable Disposition: floor Operative Findings: Grossly enlarged globular uterus likely representing a fibroid and adenomyosis secondary to NovaSure. Omental adhesion noted anteriorly and left adnexa and side of the uterus adhesions to the pelvic sidewall Description of Procedure: Patient was taken to the operating suite where a general anesthetic was found to be adequate. She was prepped and draped in the normal sterile fashion and placed in the dorsal lithotomy position. Initially a speculum was inserted to the vagina and into lip of the cervix identified and grasped with a single-tooth tenaculum. Cervix was then dilated and sounded to 6 cm. Unfortunately due to prior NovaSure the internal cervix was scarred and while I knew that the uterus was larger than that measurement was unable to pass the manipulator any further. Cup size was measured to 3 cm and after placing's stay sutures at 3 and 9 the Padmini manipulator was inserted without difficulty. Once this was accomplished Kendall cath was placed and other instruments were removed from the vagina. Gloves were changed and attention was turned to the abdominal portion procedure where 2 mL of quarter percent Marcaine was injected 2 cm above the umbilicus. Through this injected anesthetic a 5 mm skin incision was made, and through this incision under direct visualization with an optical trocar and sleeve the camera was inserted. Once camera was placed gas was allowed to fully insufflate the abdomen and patient was then placed in a very steep Trendelenburg position. 2 lateral ports were placed then 10 cm lateral to the umbilicus on the right and left side through 8 mm skin incisions. Once this was completed a fourth skin incision was made lateral to the medial periumbilical incision through 1 cm incision. These were all placed under direct visualization. Once completed camera port was exchanged for a robotic camera port and laparoscopic was removed. Robot was then brought in and docked and the scissor was placed in the one arm and a [place] grasper in the 2 arm. Once this was completed I did break scrub and go to the console. Uterus was then elevated immediately a large omental adhesion was noted anteriorly which was both sharply and bluntly dissected free. Once this was cleared observations the pelvis noted a globular enlarged uterus was anterior fibroid. The left side of the adnexa was firmly adherent to the left pelvic sidewall blunt and sharp dissection of this tissue was then created to free up enough to get to the left utero-ovarian ligament which was cauterized and cut. Moving superiorly across and through the mesosalpinx tissues tissue was cauterized and cut and then the round ligament was cauterized and cut allowing freedom of movement away from the pelvic sidewall. Once this was accomplished ball-tipped in the uterus to the right- hand side anterior posterior leafs the broad ligament were developed and cauterization uterine vascular was done. Once completed undermining of the bladder flap was done by incising the area under the bladder flap and while using the [place] grasper to separate the tissues was incised across face uterus then bluntly dissected out of the operative field. Once this was completed attention was turned the right side of the uterus which in a similar fashion was developed. Once this was completed we did cauterize both the right and left vasculature. Due to the globular nature of the uterus the anterior portion of the cervical cup was unable to be felt with certainty therefore a posterior colpotomy was made. A Padmini manipulator balloon was fully insufflated posterior colpotomy made and then while cheating head when necessary moving in a clockwise fashion and the cup was followed around circumferentially to 360. Once this was completed the uterus was brought down into the vagina with gentle traction and manipulation so that the vaginal cuff could be closed. Once this was completed seeing minimal bleeding along the pedicles this hemostasis was obtained and then the incidents were exchanged for [place] grasper and a make suture cut. To OB lock suture was then used to close the vaginal cuff in a running fashion and once completed the pelvis was thoroughly irrigated. Once this was completed instruments removed and gas was allowed to expel from the abdomen. 5 deep breaths were provided during this process. 4-0 Vicryl was then used to close incision subcuticularly and the remaining Marcaine was injected around the incisions. At the same time I did do a cystoscopy. Left ureteral jet was easily identified, right ureteral jets was difficult to identify due to how clear her urine was therefore indigo carmine was injected and once the dye w as present in the urine we are easily able to identify the right ureteral jet as well. All instruments were then removed Kendall catheter was replaced sponge, lap, needle counts were all correct 2. Patient was then taken to the recovery room in stable and satisfactory condition.
[2018-04-28] MEDS ORDERED: ONDANSETRON 4 MG/2 ML VIAL IVP PRN (10:12)
[2018-04-28 11:46] VITALS: BMI 32.6
[2018-04-28] MEDS ORDERED: HYDROcodone/APAP 7.5-325MG 1 EACH TAB PO PRN (13:33)
[2018-04-28] MEDS: KETOROLAC 30 MG/ML 1 ML VIAL IVP PRN ×2 (15:29→23:17)
[2018-04-29 02:13] VITALS: RESP 16
[2018-04-29] MEDS: KETOROLAC 30 MG/ML 1 ML VIAL IVP PRN (07:03)
[2018-04-29 08:09] VITALS: BP 129/83; PULSE 81; TEMP 98.7
[2018-04-29 08:36] LABS: Anion Gap 6 mmol/L; Blood Urea Nitrogen 8 mg/dL (7-17); Calcium 8.5 mg/dL (8.4-10.2); Carbon Dioxide 23 mmol/L (22-30); Chloride 110 mmol/L (98-107); Glucose 102 mg/dL (74-99); Potassium 3.5 mmol/L (3.5-5.1); Sodium 139 mmol/L (137-145)
[2018-04-29 08:43] LABS: Basophils % (A) 0 %; Eosinophils # (A) 0.1 k/uL (0-0.7); Eosinophils % (A) 1 %; HCT 32.8 % (34.0-46.0); HGB 10.8 gm/dL (11.4-16.0); Lymphocytes # (A) 2.6 k/uL (1.0-4.8); Lymphocytes % (A) 35 %; MCH 28.5 pg (25.0-35.0); MCHC 33.1 g/dL (31.0-37.0); MCV 86.2 fL (80.0-100.0); Mean Platelet Volume 7.1; Monocytes # (A) 0.5 k/uL (0-1.0); Monocytes % (A) 6 %; Neutrophils # (A) 4.2 k/uL (1.3-7.7); Neutrophils % (A) 56 %; Platelet Count 238 k/uL (150-450); RDW 13.6 % (11.5-15.5); WBC 7.5 k/uL (3.8-10.6)
--- NOTE | 2018-04-29 08:46 | P.DS ---
Providers Expected date of discharge: 04/29/18 Attending physician: Ras Ashford Consults: 04/28/18 14:14 Consult Physician Stat Consulting Provider: Kaitlin Bernal Consult Reason/Comments: medical management Do you want consulting provider notified?: Yes Primary care physician: [facility] Course: Patient is doing very well postop day 1. She is ambulating, voiding, and she is tolerating her diet. She voices no complaints. Vital signs are stable and afebrile. Heart regular, lungs clear, extremities without pain. Abdomen soft and nontender incisions are clean dry and intact. Assessment postop day 1. Plan discharged home follow up with me in 2 weeks. Prescription for Bledsoe and Motrin were supported to her pharmacy and discharge instructions were thoroughly reviewed. She is stable for discharge this time. Patient Condition at Discharge: Good Plan - Discharge Summary Discharge Rx Participant: No New Discharge Prescriptions: New Ibuprofen [Motrin] 600 mg PO Q6HR PRN #30 tab PRN Reason: Pain HYDROcodone/APAP 5-325MG [[place] 5-325] 1 tab PO Q4HR PRN #30 tab PRN Reason: Pain No Action Phentermine HCl [Adipex-P] 37.5 mg PO DAILY Xanax 0.25 tab PO DIRECTED PRN PRN Reason: Anxiety Pituitary Tumor Med 1 tab PO TU Discharge Medication List Phentermine HCl [Adipex-P] 37.5 mg PO DAILY 04/19/18 [History] Pituitary Tumor Med 1 tab PO TUFR 04/19/18 [History] Xanax 0.25 tab PO DIRECTED PRN 04/19/18 [History] HYDROcodone/APAP 5-325MG [[place] 5-325] 1 tab PO Q4HR PRN #30 tab 04/29/18 [Rx] Ibuprofen [Motrin] 600 mg PO Q6HR PRN #30 tab 04/29/18 [Rx] Follow up Appointment(s)/Referral(s): Ras Ashford DO [Doctor of Osteopathic Medicine] - 2 Weeks Activity/Diet/Wound Care/Special Instructions: No heavy lifting, limit stairs and driving, and pelvic rest. If any high temperatures, heavy bleeding, or severe pain call my office Discharge Disposition: HOME SELF-CARE
--- NOTE | 2018-04-29 10:42 | P.CONS ---
History of Present Illness - Reason for Consult Consult date: 04/28/18 Medical management of hypertension - Chief Complaint Status post hysterectomy - History of Present Illness Patient is a 43-year-old female with a known history of hypertension currently not on any medications, hyperprolactinemia/pretreated tumor on cabergoline and history of renal stones status post lithotripsy was admitted to the hospital for elective total hysterectomy due to menorrhagia and heavy vaginal bleeding. Patient underwent hysterectomy today. Patient was found have elevated blood pressure Perioperatively. Patient was given a dose of labetalol. Medicine service was consulted due to elevated blood pressure. Currently patient denied any complains of headache or dizziness no chest pain or shortness of breath. Abdominal soreness is present but improved with pain medications. No fever no chills. No nausea vomiting or abdominal pain. No diarrhea. Review of Systems Constitutional: Patient denies any fever or chills . No generalized weakness or weight loss. Abdomen: Patient denied nausea vomiting and diarrhea and abdominal pain. Cardiovascular: Patient denies any chest pain or short of breath no palpitations. Respiratory: patient denied any cough is from production. No shortness of breath Neurologic: Patient denied any numbness or tingling headache. Musculoskeletal: Patient denies any complaints of joint swelling or deformity. Skin: Negative Psychiatric: Negative Endocrine: No heat or cold intolerance. No recent weight gain. Genitourinary: No dysuria or hematuria. All other 14 point ROS negative except the above Past Medical History Past Medical History: Hypertension Additional Past Medical History / Comment(s): PITUITARY TUMOR, Hx of kidney stones, Had Lithotripsy x2 History of Any Multi-Drug Resistant Organisms: None Reported Past Surgical History: Bariatric Surgery, Section, Tonsillectomy, Tubal Ligation, Uterine Ablation Additional Past Surgical History / Comment(s): GASTRIC SLEEVE 04-24-16, lithotripsy X2 Past Anesthesia/Blood Transfusion Reactions: No Reported Reaction Past Psychological History: No Psychological Hx Reported Smoking Status: Never smoker Past Alcohol Use History: None Reported Past Drug Use History: None Reported - Past Family History Mother Family Medical History: Cancer Additional Family Medical History / Comment(s): lung, from lung cancer Father Family Medical History: Cancer Additional Family Medical History / Comment(s): throat and lung cancer Medications and Allergies Home Medications Medication Instructions Recorded Confirmed Type Phentermine HCl [Adipex-P] 37.5 mg PO DAILY 04/19/18 04/28/18 History Pituitary Tumor Med 1 tab PO TUFR 04/19/18 04/28/18 History Xanax 0.25 tab PO DIRECTED PRN 04/19/18 04/28/18 History HYDROcodone/APAP 5-325MG [[place] 1 tab PO Q4HR PRN #30 tab 04/29/18 Rx 5-325] Ibuprofen [Motrin] 600 mg PO Q6HR PRN #30 tab 04/29/18 Rx Allergies Allergy/AdvReac Type Severity Reaction Status Date / Time No Known Allergies Allergy Verified 04/28/18 13:48 Physical Exam Vitals: Vital Signs Temp Pulse Resp BP Pulse Ox 04/28/18 14:00 64 16 116/71 100 04/28/18 13:00 60 16 132/80 100 04/28/18 12:30 65 16 122/73 100 04/28/18 12:00 68 16 134/74 100 04/28/18 11:45 85 16 128/76 98 04/28/18 11:30 53 L 16 131/76 99 04/28/18 11:15 97.4 F L 51 L 12 149/74 86 L 04/28/18 10:39 60 16 147/88 100 04/28/18 10:24 52 L 16 149/83 100 04/28/18 10:09 53 L 16 143/78 100 04/28/18 09:56 97.1 F L 59 L 16 158/84 100 04/28/18 06:38 98.3 F 75 16 134/75 99 Intake and Output 04/28/18 04/28/18 04/28/18 06:59 14:59 22:59 Intake Total 200 1100 120 Output Total 875 700 Balance 200 225 -580 Intake: IV 200 1100 Oral 120 Output: Urine 750 700 Uretheral (Kendall) 700 Estimated Blood Loss 125 PHYSICAL EXAMINATION: Patient is lying in the bed comfortably, no acute distress, awake alert and oriented.. HEENT: Normocephalic. Neck is supple. Pupils reactive. Nostrils clear. Oral cavity is moist. Ears reveal no drainage. Neck reveals no JVD, carotid bruits, or thyromegaly. CHEST EXAMINATION: Trachea is central. Symmetrical expansion. Lung vaughn clear to auscultation and percussion. CARDIAC: Normal S1, S2 with no gallops. No murmurs ABDOMEN: Soft. Bowel sounds normal. No organomegaly. No abdominal bruits. Extremities: reveal no edema. No clubbing or cyanosis Neurologically awake, alert, oriented x3 with well-coordinated movements. No focal deficits noted Skin: No rash or skin lesions. Psychiatric: Coperative. Nonsuicidal Musculoskeletal: No joint swelling or deformity. Normal range of motion. Results CBC & Chem 7: 04/29/18 08:00 04/29/18 08:00 Assessment and Plan Assessment: Elevated blood pressure. Perioperatively. History of hypertension currently patient is not on medications Hyperprolactinemia. Patient is taking cabergoline at home. History of anxiety DVT prophylaxis Plan: Patient was given a dose of labetalol and currently blood pressure is well controlled. Will hold on starting any new blood pressure medications at this time. Continue to monitor patient overnight. Pain management and bowel regimen. Encourage incentive spirometry and follow closely. Continue with home medications. Further conditions based on the clinical course. Thank you kindly for your consult. Time with Patient: Greater than 30
[2018-04-29] MEDS ORDERED: [UNRECOGNIZED DRUG - REMARK] PO SCH (16:45)
== END 2018-04-29 11:17 | disposition home or self-care (01) ==
LOC: OR 05:53 → 6PED 09:52 → 4SSUR 04-29 02:32 → OR 04-29 11:17
PROVIDERS: ATTEND Obstetrics & Gynecology
DX: D25.1 Intramural leiomyoma of uterus (principal); N80.0 Endometriosis of uterus; N73.6 Female pelvic peritoneal adhesions (postinfective); I10 Essential (primary) hypertension; F41.9 Anxiety disorder, unspecified; D49.7 Neoplasm of unspecified behavior of endocrine glands and other parts of nervous system; E22.1 Hyperprolactinemia; Z87.442 Personal history of urinary calculi; Z98.51 Tubal ligation status; Z98.84 Bariatric surgery status; Z80.1 Family history of malignant neoplasm of trachea, bronchus and lung; Z80.8 Family history of malignant neoplasm of other organs or systems; Z79.899 Other long term (current) drug therapy
CPT/HCPCS: 58570; S2900; 36415; 80048; 81025; 85025; 86850; 86900; 86901; 88307

== ENCOUNTER → 2019-11-24 | Outpatient (CLI) | payer BC ==
--- NOTE | 2019-11-27 10:37 | USB ---
Reason for exam: additional evaluation requested from abnormal screening. Physical Findings: Nurse did not find any significant physical abnormalities on exam. US Breast Workup Limited RT Right limited breast ultrasound including focal area of concern, retroareolar and axilla demonstrates no cystic or solid lesion seen. These results were verbally communicated with the patient and result sheet given to the patient on 11/24/19. ASSESSMENT: Probably benign, BI-RAD 3 RECOMMENDATION: Follow-up diagnostic mammogram of the right breast in 6 months.
== END | disposition home or self-care (01) ==
LOC: RADUSWWP 09:40
PROVIDERS: ATTEND Family Medicine
DX: R92.8 Other abnormal and inconclusive findings on diagnostic imaging of breast (principal)

== ENCOUNTER → 2020-11-11 | Outpatient (CLI) | payer BC ==
--- NOTE | 2020-11-13 10:06 | MM ---
Reason for exam: screening (asymptomatic). Last mammogram was performed 1 year ago. Physical Findings: A clinical breast exam by your physician is recommended on an annual basis and results should be correlated with mammographic findings. MG 3D Screening Mammo W/Cad Bilateral CC and MLO view(s) were taken. Prior study comparison: November 09, 2019, bilateral MG 3d screening mammo w/cad. April 18, 2018, bilateral MG 3d screening mammo w/cad. February 28, 2016, bilateral MG 3d screening mammo w/cad. The breast tissue is heterogeneously dense. This may lower the sensitivity of mammography. There is chronic nodularity in the left breast. No significant changes when compared with prior studies. ASSESSMENT: Benign, BI-RAD 2 RECOMMENDATION: Routine screening mammogram of both breasts in 1 year. Patient should continue monthly self breast exams. A negative report should not preclude additional follow up of suspicious palpable abnormalities.
== END | disposition home or self-care (01) ==
LOC: RADMAMWWP 13:05
PROVIDERS: ATTEND Family Medicine
DX: Z12.31 Encounter for screening mammogram for malignant neoplasm of breast (principal)
CPT/HCPCS: 77063; 77067

== ENCOUNTER 2021-07-06 16:27 | Emergency (ER) | payer BC ==
[2021-07-06 17:42] LABS: Basophils # (A) 0.1 k/uL (0-0.2); Basophils % (A) 1 %; Eosinophils # (A) 0.1 k/uL (0-0.7); Eosinophils % (A) 1 %; HCT 39.3 % (34.0-46.0); Lymphocytes % (A) 25 %; MCH 27.5 pg (25.0-35.0); MCV 83.2 fL (80.0-100.0); Monocytes # (A) 0.4 k/uL (0-1.0); Monocytes % (A) 5 %; Neutrophils # (A) 5.4 k/uL (1.3-7.7); Neutrophils % (A) 67 %; Platelet Count 298 k/uL (150-450); RBC 4.72 m/uL (3.80-5.40); RDW 14.5 % (11.5-15.5)
[2021-07-06] MEDS ORDERED: SODIUM CHLORIDE 0.9% 1,000 ML IV STA (17:48)
--- NOTE | 2021-07-06 17:51 | ED ---
General Adult HPI - General Chief complaint: Abdominal Pain Stated complaint: Abd pain,Diarrhea Time Seen by Provider: 07/06/21 17:26 Source: patient, RN notes reviewed Mode of arrival: ambulatory Limitations: no limitations - History of Present Illness Initial comments: 46-year-old female presents to the emergency department for evaluation of right upper quadrant abdominal pain that has been intermittent over the past 2 months. Patient states the pain has worsened over the last couple of weeks and is now associated with diarrhea and gas pain and occurs approximately 30 minutes after eating. Patient states she is concerned about gallbladder disease. States she has previously had a gastric sleeve and has had no complications since. Denies chance of as she has had a tubal ligation and uterine ablation. Denies fever, chills, headache, dizziness, chest pain, difficulty breathing, vomiting, dysuria, and hematuria. - Related Data Home Medications Medication Instructions Recorded Confirmed Phentermine HCl [Adipex-P] 37.5 mg PO DAILY 04/19/18 04/28/18 Pituitary Tumor Med 1 tab PO TUFR 04/19/18 04/28/18 Xanax 0.25 tab PO DIRECTED PRN 04/19/18 04/28/18 Previous Rx's Medication Instructions Recorded HYDROcodone/APAP 5-325MG [[place] 1 tab PO Q4HR PRN #30 tab 04/29/18 5-325] Ibuprofen [Motrin] 600 mg PO Q6HR PRN #30 tab 04/29/18 Ondansetron Odt [Zofran Odt] 4 mg PO Q8HR PRN #10 tab 07/06/21 Allergies Allergy/AdvReac Type Severity Reaction Status Date / Time No Known Allergies Allergy Verified 07/06/21 16:49 Review of Systems ROS Statement: Those systems with pertinent positive or pertinent negative responses have been documented in the HPI. ROS Other: All systems not noted in ROS Statement are negative. Past Medical History Past Medical History: Hypertension Additional Past Medical History / Comment(s): Hx of kidney stones, nausea/vomting. Had Lithotripsy x2 History of Any Multi-Drug Resistant Organisms: None Reported Past Surgical History: Bariatric Surgery, Section, Tonsillectomy, Tubal Ligation, Uterine Ablation Additional Past Surgical History / Comment(s): GASTRIC SLEEVE 04-24-16, lithotripsy 08/03/16 Past Anesthesia/Blood Transfusion Reactions: No Reported Reaction Past Psychological History: No Psychological Hx Reported Smoking Status: Never smoker Past Alcohol Use History: None Reported Past Drug Use History: None Reported - Past Family History Mother Family Medical History: Cancer Additional Family Medical History / Comment(s): lung, from lung cancer Father Family Medical History: Cancer Additional Family Medical History / Comment(s): throat and lung cancer General Exam Limitations: no limitations (Well-developed, well-nourished female in no acute distress. Initial temperature 98.2, pulse 102, respirations 16, blood pressure 166/91, pulse ox 97% on room air.) General appearance: alert, in no apparent distress Eye exam: Present: normal appearance. Absent: scleral icterus, conjunctival injection ENT exam: Present: normal exam, normal oropharynx, mucous membranes moist Neck exam: Present: normal inspection, full ROM. Absent: tenderness, meningismus, lymphadenopathy Respiratory exam: Present: normal lung sounds bilaterally. Absent: respiratory distress, wheezes, rales, rhonchi, stridor, chest wall tenderness Cardiovascular Exam: Present: regular rate, normal rhythm, normal heart sounds. Absent: systolic murmur, diastolic murmur, rubs, gallop, clicks GI/Abdominal exam: Present: soft, normal bowel sounds, other (Patient is pain- free upon assessment at this time. States the pain she experienced prior to arrival occurred after eating.). Absent: distended, tenderness, guarding, rebound, rigid Back exam: Absent: CVA tenderness (R), CVA tenderness (L) Neurological exam: Present: alert, oriented X3, CN II-XII intact Psychiatric exam: Present: normal affect, normal mood Skin exam: Present: warm, dry, intact, normal color. Absent: rash Course Vital Signs 07/06/21 07/06/21 16:47 19:49 Temperature 98.2 F 98.4 F Pulse Rate 102 H 67 Respiratory 16 14 Rate Blood Pressure 166/91 139/86 O2 Sat by Pulse 97 98 Oximetry Medical Decision Making - Medical Decision Making This is a pleasant 46-year-old female with a past medical history of gastric sleeve presents to the emergency department with complaints of right upper quadrant abdominal pain. Upon exam, patient is well-appearing and in no acute distress. Vital signs are stable. Abdomen is soft and tender upon palpation of the right upper quadrant. No active vomiting or diarrhea at this time. Laboratory studies were reviewed and are unremarkable. Urinalysis results are compatible with known renal calculi. Ultrasound of the right upper quadrant was obtained with no acute findings. KUB shows presence of nephrolithiasis. Patient was given IV fluids, but was pain-free upon arrival therefore declined any further medication. She was prescribed Zofran for nausea and instructed to follow up with her PCP for a recheck. Return parameters were discussed in detail. Patient verbalizes understanding and agrees with this plan. Attending: Abraham. - Lab Data Result diagrams: 07/06/21 17:24 07/06/21 17:24 Lab Results 07/06/21 07/06/21 07/06/21 Range/Units 17: 17: 17:24 WBC 8.0 (3.8-10.6) k/uL RBC 4.72 (3.80-5.40) m/uL Hgb 13.0 (11.4-16.0) gm/dL Hct 39.3 (34.0-46.0) % MCV 83.2 (80.0-100.0) fL MCH 27.5 (25.0-35.0) pg MCHC 33.0 (31.0-37.0) g/dL RDW 14.5 (11.5-15.5) % Plt Count 298 (150-450) k/uL MPV 8.0 Neutrophils % 67 % Lymphocytes % 25 % Monocytes % 5 % Eosinophils % 1 % Basophils % 1 % Neutrophils # 5.4 (1.3-7.7) k/uL Lymphocytes # 2.0 (1.0-4.8) k/uL Monocytes # 0.4 (0-1.0) k/uL Eosinophils # 0.1 (0-0.7) k/uL Basophils # 0.1 (0-0.2) k/uL Sodium 137 (137-145) mmol/L Potassium 4.2 (3.5-5.1) mmol/L Chloride 110 H (98-107) mmol/L Carbon Dioxide 21 L (22-30) mmol/L Anion Gap 6 mmol/L BUN 10 (7-17) mg/dL Creatinine 0.74 (0.52-1.04) mg/dL Est GFR (CKD-EPI)AfAm >90 (>60 ml/min/1.73 sqM) Est GFR (CKD-EPI)NonAf >90 (>60 ml/min/1.73 sqM) Glucose 102 H (74-99) mg/dL Calcium 8.6 (8.4-10.2) mg/dL Total Bilirubin 0.4 (0.2-1.3) mg/dL AST 20 (14-36) U/L ALT 14 (4-34) U/L Alkaline Phosphatase 90 (38-126) U/L Total Protein 6.8 (6.3-8.2) g/dL Albumin 4.1 (3.5-5.0) g/dL Amylase 80 (30-110) U/L Lipase 78 (23-300) U/L Urine Color Yellow Urine Appearance Cloudy H (Clear) Urine pH 6.0 (5.0-8.0) Ur Specific [place] 1.030 (1.001-1.035) Urine Protein 1+ H (Negative) Urine Glucose (UA) Negative (Negative) Urine Ketones Negative (Negative) Urine Blood Trace H (Negative) Urine Nitrite Negative (Negative) Urine Bilirubin Negative (Negative) Urine Urobilinogen <2.0 (<2.0) mg/dL Ur Leukocyte Esterase Trace H (Negative) Urine RBC 7 H (0-5) /hpf Urine WBC 6 H (0-5) /hpf Ur Squamous Epith Cells 4 (0-4) /hpf Calcium Oxalate Crystal Few H (None) /hpf Urine Bacteria Few H (None) /hpf Hyaline Casts 5 H (0-2) /lpf Urine Mucus Many H (None) /hpf - Radiology Data Radiology results: report reviewed, image reviewed KUB x-ray was obtained. Report was reviewed in its entirety. Impression per is no acute process. Nephrolithiasis. Ultrasound of the right upper quadrant was obtained. Report was reviewed in its entirety. Impression per Dr. Lane is right nephrolithiasis. Otherwise no significant sonographic abnormality. Disposition Clinical Impression: Abdominal pain, Nausea Disposition: HOME SELF-CARE Condition: Stable Instructions (If sedation given, give patient instructions): Acute Nausea and Vomiting (ED), Abdominal Pain (ED) Additional Instructions: Avoid fatty, greasy, and spicy foods. Adhere to a bland diet as much as possible. Consider an electrolyte drink such as Gatorade, Powerade, Pedialyte. Take Zofran if needed for nausea. Follow-up with Dr. Villatoro for further evaluation and treatment. See your PCP within the next week for a recheck. Return to the emergency department with any new, worsening, or concerning symptoms. Prescriptions: Ondansetron Odt [Zofran Odt] 4 mg PO Q8HR PRN #10 tab PRN Reason: Nausea Is patient prescribed a controlled substance at d/c from ED?: No Referrals: Randy Harrell MD [Primary Care Provider] - 1-2 days Time of Disposition: 20:16
[2021-07-06 17:59] LABS: Appearance,Urine Cloudy (Clear); Bacteria,Urine Few /hpf; Bilirubin,Urine Negative (Negative); Blood,Urine Trace (Negative); Calcium Oxalate Crystals,Urine Few /hpf; Color,Urine Yellow; Glucose,Urine (UA) Negative (Negative); Hyaline Casts,Urine 5 /lpf (0-2); Ketones,Urine Negative (Negative); Leukocyte Esterase,Urine Trace (Negative); Mucus,Urine Many /hpf; Nitrite,Urine Negative (Negative); Protein,Urine 1+ (Negative); RBC,Urine 7 /hpf (0-5); Squamous Epithelial Cell,Urine 4 /hpf (0-4); Urobilinogen,Urine <2.0 mg/dL (<2.0); WBC,Urine 6 /hpf (0-5)
[2021-07-06 18:04] LABS: ALT 14 U/L (4-34); African American GFR (CKD) >90 (>60 ml/min/1.73 sqM); Albumin 4.1 g/dL (3.5-5.0); Amylase 80 U/L (30-110); Anion Gap 6 mmol/L; Blood Urea Nitrogen 10 mg/dL (7-17); Calcium 8.6 mg/dL (8.4-10.2); Carbon Dioxide 21 mmol/L (22-30); Chloride 110 mmol/L (98-107); Glucose 102 mg/dL (74-99); Lipase 78 U/L (23-300); Non-African American GFR(CKD) >90 (>60 ml/min/1.73 sqM); Sodium 137 mmol/L (137-145); Total Bilirubin 0.4 mg/dL (0.2-1.3); Total Protein 6.8 g/dL (6.3-8.2)
[2021-07-06 18:06] LABS: AST 20 U/L (14-36); Alkaline Phosphatase 90 U/L (38-126); Potassium 4.2 mmol/L (3.5-5.1)
--- NOTE | 2021-07-06 18:07 | XR ---
EXAM: Abdomen radiograph. HISTORY: Pain. TECHNIQUE: Supine AP view. COMPARISON: 08/21/2016 FINDINGS: There are nondilated bowel loops with a nonobstructive pattern. There are a few calcific densities ov erlying the lateral renal shadows measuring up to 4 mm are consistent with nephrolithiasis. Otherwise no pathologic calcifications. No acute osseous abnormality seen. Tubal ligation clips seen. IMPRESSION: No acute process. Nephrolithiasis.
--- NOTE | 2021-07-06 19:20 | US ---
EXAMINATION TYPE: US abdomen limited DATE OF EXAM: 07/06/2021 COMPARISON: CT 2017 CLINICAL HISTORY: RUQ abdominal pain. Abdomen pain, nausea and diarrhea x couple months, worse after eating EXAM MEASUREMENTS: Liver Length: 15.1 cm Gallbladder Wall: 0.2 cm CBD: 0.4 cm Right Kidney: 10.2 x 5.4 x 4.9 cm Pancreas: visualized portions wnl, limited by overlying midline bowel gas Liver: wnl Gallbladder: wnl Evidence for sonographic Allison's sign: no CBD: visualized portions wnl, limited by overlying bowel gas Right Kidney: 0.8cm stone inferior pole IMPRESSION: Right nephrolithiasis. Otherwise no significant sonographic abnormality.
[2021-07-06 19:54] VITALS: BP 139/86; PULSE 67; RESP 14; TEMP 98.4
== END 2021-07-06 20:22 | disposition home or self-care (01) ==
LOC: EC 16:27
DX: R10.9 Unspecified abdominal pain (principal); R11.0 Nausea; I10 Essential (primary) hypertension
CPT/HCPCS: 36415; 74018; 76705; 80053; 81001; 82150; 83690; 85025; 96360; 99284

== ENCOUNTER → 2021-11-21 | Outpatient (CLI) | payer BC ==
--- NOTE | 2021-11-24 09:24 | MM ---
Reason for Exam: Screening (asymptomatic). Last mammogram was performed 1 year(s) and 1 month(s) ago. Patient History: Menarche at age 11. First Full-Term at age 27. Hysterectomy at age 43. Risk Values: Danica 5 year model risk: 1.0%. NCI Lifetime model risk: 10.3%. Prior Study Comparison: 04/18/2018 Bilateral Screening Mammogram, [facility]. 11/09/2019 Bilateral Screening Mammogram, [facility]. 11/11/2020 Bilateral Screening Mammogram, [facility]. Tissue Density: The breast tissue is heterogeneously dense. This may lower the sensitivity of mammography. Findings: Analyzed By CAD. In the right mediolateral oblique view there is area of increased density which may have some spiculated margins. This is an interval change from comparison studies. Corresponding abnormality on the craniocaudal view is not clearly identified. Additional workup is recommended. Left breast appears stable. Benign-appearing stable nodularities are in the upper outer aspect left breast. Overall Assessment: Incomplete: need additional imaging evaluation, BI-RAD 0 Management: Diagnostic Mammogram of the right breast. A negative mammogram report should not preclude additional follow up of suspicious palpable abnormalities. Patient should continue monthly self breast exam. A clinical breast exam by your physician is recommended on an annual basis and results should be correlated with mammographic findings. Electronically signed and approved by: Martin Ha D.O. Radiologis
== END | disposition home or self-care (01) ==
LOC: RADMAMWWP 15:51
PROVIDERS: ATTEND Family Medicine
DX: Z12.31 Encounter for screening mammogram for malignant neoplasm of breast (principal)
CPT/HCPCS: 77063; 77067

== ENCOUNTER → 2021-11-28 | Outpatient (CLI) | payer BC ==
--- NOTE | 2021-11-28 10:53 | MM ---
Reason for Exam: Additional evaluation requested from abnormal screening. Last screening mammogram was performed less than 1 month ago. Patient History: Menarche at age 11. First Full-Term at age 27. Hysterectomy at age 43. Risk Values: Danica 5 year model risk: 1.0%. NCI Lifetime model risk: 10.3%. Tissue Density: Right: The breast tissue is heterogeneously dense. This may lower the sensitivity of mammography. Findings: Analyzed By CAD. Under compression the distortion in the upper right breast appears to disperse. No obvious spiculation is evident. Medial lateral view appears normal. Overall Assessment: Probably benign, BI-RAD 3 Management: Diagnostic Mammogram of the right breast in 6 months. A clinical breast exam by your physician is recommended on an annual basis and results should be correlated with mammographic findings. This exam should not preclude additional follow-up of suspicious palpable abnormalities. Results were given to the patient verbally at the time of exam. Electronically signed and approved by: Martin Ha D.O. Radiologis
== END | disposition home or self-care (01) ==
LOC: RADMAMWWP 10:16
PROVIDERS: ATTEND Family Medicine
DX: R92.8 Other abnormal and inconclusive findings on diagnostic imaging of breast (principal)
CPT/HCPCS: 77061; 77065

== ENCOUNTER → 2022-06-26 | Outpatient (CLI) | payer BC ==
--- NOTE | 2022-06-26 07:59 | MM ---
Reason for Exam: Follow-up at short interval from prior study. Last screening mammogram was performed 7 month(s) ago. Patient History: Menarche at age 11. First Full-Term at age 27. Hysterectomy at age 43. Risk Values: Danica 5 year model risk: 1.0%. NCI Lifetime model risk: 10.2%. Prior Study Comparison: 11/11/2020 Bilateral Screening Mammogram, [facility]. 11/21/2021 Bilateral MG 3D screening mammo w/cad, [facility]. 11/28/2021 Right MG 3D work up w/cad RT, [facility]. Tissue Density: Right: The breast tissue is heterogeneously dense. This may lower the sensitivity of mammography. Findings: Analyzed By CAD. No new suspicious mass or suspicious calcifications within the right breast. Asymmetry in the right upper breast appears stable. Overall Assessment: Benign, BI-RAD 2 Management: Screening Mammogram of both breasts in 6 months. A clinical breast exam by your physician is recommended on an annual basis and results should be correlated with mammographic findings. This exam should not preclude additional follow-up of suspicious palpable abnormalities. Results were given to the patient verbally at the time of exam. Electronically signed and approved by: Doug Crabtree D.O.
== END | disposition home or self-care (01) ==
LOC: RADMAMWWP 07:35
PROVIDERS: ATTEND Family Medicine
DX: R92.8 Other abnormal and inconclusive findings on diagnostic imaging of breast (principal)
CPT/HCPCS: 77061; 77065

== ENCOUNTER → 2023-03-18 | Outpatient (CLI) | payer BC ==
--- NOTE | 2023-03-19 13:56 | MM ---
Reason for Exam: Screening (asymptomatic). Last mammogram was performed 1 year(s) and 4 month(s) ago. Patient History: Menarche at age 11. First Full-Term at age 27. Hysterectomy at age 43. Risk Values: Danica 5 year model risk: 1.0%. NCI Lifetime model risk: 10.0%. Prior Study Comparison: 11/21/2021 Bilateral MG 3D screening mammo w/cad, [facility]. 11/28/2021 Right MG 3D work up w/cad RT, [facility]. 06/26/2022 Right MG 3D diag mammo w/cad RT, [facility]. Tissue Density: The breast tissue is heterogeneously dense. This may lower the sensitivity of mammography. Findings: Analyzed By CAD. There is no suspicious group of microcalcifications or new suspicious mass. Overall Assessment: Negative, BI-RAD 1 Management: Screening Mammogram of both breasts in [address] [facility] will attempt to contact patient to return for supplemental views and ultrasound if indicated. Patient should continue monthly self-breast exams. A clinical breast exam by your physician is recommended on an annual basis. This exam should not preclude additional follow-up of suspicious palpable abnormalities. Note on Danica scores and lifetime risk: 1. A Danica score greater than 3% is considered moderate risk. If this is the case, consider specialist referral to assess eligibility for a risk reducing agent. 2. If overall lifetime risk for the development of breast cancer is 20% or higher, the patient may qualify for future screening with alternating mammogram and breast MRI. Electronically signed and approved by: Ethan Mahajan DO
== END | disposition home or self-care (01) ==
LOC: RADMAMWWP 07:44
PROVIDERS: ATTEND Family Medicine
DX: Z12.31 Encounter for screening mammogram for malignant neoplasm of breast (principal)
CPT/HCPCS: 77063; 77067

== ENCOUNTER → 2023-11-15 | Outpatient (CLI) | payer BC ==
--- NOTE | 2023-11-15 11:38 | XR ---
EXAMINATION TYPE: XR KUB DATE OF EXAM: 11/15/2023 11:32 AM CLINICAL INDICATION: Female, 48 years old with history of N20.0, N20.1; [facility] COMPARISON: None. TECHNIQUE: One radiographic view of the abdomen was obtained. FINDINGS: The bowel gas pattern is nonspecific without dilated loops of small or large bowel. . Fecal material and gas are demonstrated throughout the colon and rectum. There is no evidence for organomegaly or pneumoperitoneum. The osseous structures are intact. Bilat eral renal calculi measuring up to 18 mm on the right and 9 mm on the left. Bilateral tubal ligation clips. IMPRESSION: 1. Bilateral renal calculi. 2. Nonspecific bowel gas pattern without radiographic evidence for acute process. [facility], , 11/15/2023 11:35 AM
== END | disposition home or self-care (01) ==
LOC: RADXRMAIN 11:18
PROVIDERS: ATTEND Urology
DX: N20.2 Calculus of kidney with calculus of ureter (principal)
CPT/HCPCS: 74018

== ENCOUNTER → 2023-11-19 | Outpatient (CLI) | payer BC ==
[2023-11-19 20:27] LABS: Basophils # (A) 0.09 X 10*3/uL (0.00-0.10); Basophils % (A) 1.1 %; Eosinophils # (A) 0.08 X 10*3/uL (0.04-0.35); HGB 12.6 g/dL (12.0-15.0); Lymphocytes # (A) 2.85 X 10*3/uL (0.90-5.00); Lymphocytes % (A) 34.9 %; MCHC 34.1 g/dL (32.0-37.0); MCV 82.2 FL (80.0-97.0); Monocytes # (A) 0.64 X 10*3/uL (0.20-1.00); Monocytes % (A) 7.8 %; NRBC Per 100 WBC 0 X 10*3/uL (0.00-0.01); Neutrophils # (A) 4.49 X 10*3/uL (1.80-7.70); Platelet Count 315 X 10*3/uL (140-440); RDW 13.7 % (11.5-14.5); WBC 8.17 X 10*3/uL (4.50-10.00)
[2023-11-19 20:45] LABS: BUN/Creat Ratio 22.56 Ratio (12.00-20.00); Blood Urea Nitrogen 20.3 mg/dL (9.0-27.0); Calcium 9.2 mg/dL (8.7-10.3); Carbon Dioxide 24.6 mmol/L (21.6-31.8); Chloride 101 mmol/L (96-109); Glucose 86 mg/dL (70-110); Potassium 3.5 mmol/L (3.5-5.5); Sodium 139 mmol/L (135-145)
[2023-11-20 03:44] LABS: Appearance,Urine Clear (Clear); Bacteria,Urine Trace (None Seen); Bilirubin,Urine Negative (Negative); Blood,Urine Trace (Negative); Color,Urine Yellow (Yellow); Ketones,Urine Negative (Negative); Nitrite,Urine Negative (Negative); Specific Gravity,Urine 1.009 (1.001-1.030); Urobilinogen,Urine 0.2
== END | disposition home or self-care (01) ==
LOC: LABPAT 15:16
PROVIDERS: ATTEND Urology
DX: Z01.812 Encounter for preprocedural laboratory examination (principal); N20.1 Calculus of ureter
CPT/HCPCS: 80048; 81001; 85025; 87086

== ENCOUNTER 2023-11-24 06:58 | Day surgery (SDC) | payer BC ==
--- NOTE | 2023-11-23 11:15 | P.GSHP ---
History of Present Illness H&P Date: 11/23/23 48-year-old female with a history of stones. She used to see . She recently presented after having gross hematuria. She had a CAT scan. CAT scan showed bilateral renal and ureteral stones up. I did a KUB identifying a 2 mm UPJ stone on the right and a 9 mm proximal left ureteral stone on the left. We discussed treatment options. She comes for ureteroscopy, bilateral with laser lithotripsy and probable stent. Risks and complications of an outlined - Constitutional Constitutional: Denies chills, Denies fever - EENT Eyes: denies blurred vision, denies pain Ears, nose, mouth and throat: Denies headache, Denies sore throat - Cardiovascular Cardiovascular: Denies chest pain, Denies shortness of breath - Respiratory Respiratory: Denies cough, Denies 7 - Gastrointestinal Gastrointestinal: Denies abdominal pain, Denies diarrhea, Denies nausea, Denies vomiting - Genitourinary (Female) Genitourinary: Denies dysuria, Denies hematuria - Genitourinary (Male) Genitourinary: Denies dysuria, Denies hematuria - Musculoskeletal Musculoskeletal: Denies myalgias - Integumentary Integumentary: Denies pruritus, Denies rash - Neurological Neurological: Denies numbness, Denies weakness - Psychiatric Psychiatric: Denies anxiety, Denies depression - Endocrine Endocrine: Denies fatigue, Denies weight change Past Medical History Past Medical History: Hypertension Additional Past Medical History / Comment(s): Hx of kidney stones History of Any Multi-Drug Resistant Organisms: None Reported Past Surgical History: Bariatric Surgery, Section, Hysterectomy, Tonsillectomy, Tubal Ligation, Uterine Ablation Additional Past Surgical History / Comment(s): GASTRIC SLEEVE 04-24-16, lithotripsy x 4 Past Anesthesia/Blood Transfusion Reactions: No Reported Reaction Smoking Status: Never smoker - Past Family History Mother Family Medical History: Cancer Additional Family Medical History / Comment(s): lung, from lung cancer Father Family Medical History: Cancer Additional Family Medical History / Comment(s): throat and lung cancer Medications and Allergies Home Medications Medication Instructions Recorded Confirmed Type Xanax 0.25 tab PO DIRECTED PRN 04/19/18 11/19/23 History Losartan/Hydrochlorothiazide 1 tab PO HS 11/19/23 11/19/23 History [Losartan-Hctz 100-12.5 mg Tab] Semaglutide [Wegovy] 2.4 mg SQ Q14D 11/19/23 11/19/23 History Sertraline [Zoloft] 100 mg PO HS 11/19/23 11/19/23 History Zolpidem [Ambien] 10 mg PO HS PRN 11/19/23 11/19/23 History amLODIPine [Norvasc] 10 mg PO QAM 11/19/23 11/19/23 History Allergies Allergy/AdvReac Type Severity Reaction Status Date / Time No Known Allergies Allergy Verified 11/19/23 10:49 Surgical - Exam - General well developed, well nourished, no distress - Eyes normal ocular movement, no icteric - ENT no hearing loss, no congestion - Neck no masses, trachea midline - Respiratory normal respiratory effort, clear to auscultation - Abdomen Abdomen: soft, non tender, no guarding, no rigid, no rebound - Integumentary no rash, no abnormal pigmentation - Neurologic no disoriented, no combative - Psychiatric oriented to time, oriented to person, oriented to place, speech is normal, memory intact Results - Imaging Abdominal x-ray: report reviewed, image reviewed CT scan - abdomen: report reviewed, image reviewed CT scan - pelvis: report reviewed, image reviewed Assessment and Plan Assessment: Impression: Bilateral ureteral stones on 18 mm UPJ on the right 9 mm proximal ureter on the left Recommendations: Patient undergo bilateral ureteroscopy with laser lithotripsy. She probably will require stents which has been discussed.
[~2023-11-24 06:58] MED LIST changes: -DEXAMETHASONE SOD PHOSPHATE 10 MG/ML 1 ML VIAL IV ONE; +LIDOCAINE 1% (10MG/ML) FOR IV START INTRADERMA PRN; -LIDOCAINE 1% 20 ML VIAL (10MG/ML) FOR IV START INTRADERMA PRN; +MIDAZOLAM 2 MG/2 ML VIAL IV PRN; -ONDANSETRON 4 MG/2 ML VIAL IVP ONE; -SCOPOLAMINE 1.5MG/72HR PATCH TRANSDERM ONE; -ceFAZolin IN SWFI 2 GM/20 ML SYRINGE IVP ONE; +fentaNYL (PF) 50 MCG/ML 2 ML AMP IVP PRN
--- NOTE | 2023-11-24 07:59 | XR ---
EXAMINATION TYPE: XR KUB DATE OF EXAM: 11/24/2023 HISTORY: Pain Comparison: 11/15/2023 Single KUB is submitted for interpretation. Findings: Right renal calculi: Right renal calculus measuring 4.7 mm. Right ureteral calculi: Right UPJ calculus measuring 1.7 cm. Left renal calculi: Left renal calculus measuring 3.7 mm. Left ureteral calculi: Left ureteral calculus measuring 8 mm at the level of the left L3 transverse process. Pelvic calcifications: Yes Bowel gas pattern is unremarkable. No free air. No mass effects. IMPRESSION: 1. As above [facility], , 11/24/2023 7:56 AM
[2023-11-24 08:09] LABS: Glucose,Whole Blood 95 mg/dL (70-110)
[2023-11-24] MEDS: DEXAMETHASONE SOD PHOSPHATE 4 MG/ML 1 ML VIAL IV ONE (08:10)
[2023-11-24] MEDS: LACTATED RINGERS 1,000 ML IV SCH (08:10)
[2023-11-24] MEDS: ONDANSETRON 4 MG/2 ML VIAL IVP ONE (08:10)
[2023-11-24] MEDS: IV FLUID CONTINUATION 1,000 ML IV ONE (08:13)
[2023-11-24] MEDS ORDERED: fentaNYL (PF) 50 MCG/ML 2 ML AMP ONE (09:03)
[2023-11-24] MEDS ORDERED: ePHEDrine 50 MG/ML 1 ML VIAL ONE (09:03)
[2023-11-24] MEDS ORDERED: LIDOCAINE 1% INJ 10MG/ML (20 ML MDV) ONE (09:03)
[2023-11-24] MEDS ORDERED: PROPOFOL 10 MG/ML 20 ML VIAL IV ONE (09:03)
[2023-11-24] MEDS ORDERED: SUCCINYLCHOLINE CHLORIDE 200 MG/10 ML VIAL IV ONE (09:03)
[2023-11-24] MEDS ORDERED: MIDAZOLAM 2 MG/2 ML VIAL ONE (09:03)
[2023-11-24] MEDS: LACTATED RINGERS 1,000 ML IV ONE (10:12)
--- NOTE | 2023-11-24 10:42 | P.OP ---
Date of Procedure: 11/24/23 Preoperative Diagnosis: bilateral ureteral and renal calculi with secondary hydronephrosis Postoperative Diagnosis: same Procedure(s) Performed: cystoscopy, bilateral uretero renoscopy with laser lithotripsy, placement of bilateral 6 x 22 double-J catheter Anesthesia: GINNY Surgeon: Jono Adkins Estimated Blood Loss (ml): 10 Pathology: other (stone) Condition: stable Disposition: PACU Indications for Procedure: patient is 48. She presented to the office with bilateral UPJ stones 8 mm on the left 16 on the right and bilateral renal stones. We discussed treatment options and she comes for bilateral ureteroscopy with laser lithotripsy and probable stent placement Description of Procedure: patient brought to the operating suite. Given a general anesthetic. Placed lithotomy position with sterile prep and drape. Cystoscopy Foroblique lens and 21-Pashto sheath identifies a normal urethra. The bladder mucosa is unremarkable. The left ureteral orifice is identified. An 035 wires passed up the left ureter to the stone. The stone was quite impacted and take some time to get the wire to manipulate beyond the stone. Over the wires and passed 15-47-Sydgsh reentry sheath. I removed the inner sheath and wire. I passed the flexible ureteroscope up to the stone up. With return 75 laser probe the stone was broken into tiny pieces.] The kidney. I break it into tiny dustlike fragments. I then remove throughout the collecting system and identify another stone and fractured into tiny pieces. Significant fragments to grasp. Due to the edema from the obstructing UPJ stone a stent will be placed. An 035 wires passed the working sheath. I removed the working sheath and over the wires passed a 6 x 22 double-J cath that coils in the renal pelvis and the bladder I reintroduced the cystoscope into the bladder and confirm the stent position and it is placed appropriately. An 035 wires and passed through the right ureter up to the stone. It is also quite impacted. I have difficulty getting ago by the stone and eventually do. Over the wires and passed 1113-Pashto sheath. The inner sheath is removed and then I passed the flexible ureteroscope up to the stone. I break the stone into tiny fragments basketing the largest pieces. The remainder is dust. I then passed throughout the collecting system identified couple more small stones are fragmented. Elected also place a double-J. An 035 wires passed through the working sheath. I removed the working sheath and over the wires passed a 6 x 22 double-J cath that coils in the renal pelvis and the bladder. Its position in the bladder is confirmed endoscopically. Bladder is drained the patient is awake and returned recovery in good condition. She'll be discharged home upon recovery and found the office in week for cystoscopy and stent removal.
[2023-11-24 10:59] VITALS: TEMP 97
--- NOTE | 2023-11-24 11:12 | FL ---
Intraoperative/procedural fluoroscopic services were provided for bilateral ureteral stone with stent placements. Total fluoroscopy time is 49.4 seconds with a total of 9 submitted images to PACS. Total DAP 4.8067 Gycm2. Please see the operative note for further details. [facility], , 11/24/2023 11:10 AM
[2023-11-24 11:16] VITALS: RESP 20
[2023-11-24 12:26] VITALS: BP 105/70; PULSE 90
== END 2023-11-24 12:34 | disposition home or self-care (01) ==
LOC: OR 06:58
PROVIDERS: ATTEND Urology
DX: N20.1 Calculus of ureter
CPT/HCPCS: 74018; 82365

== ENCOUNTER 2023-12-15 08:58 | Day surgery (SDC) | payer BC ==
[2023-12-13 16:00] VITALS: BMI 30.7
[~2023-12-15 08:58] MED LIST changes: -HYDROmorphone 0.5 MG/0.5 ML SYRINGE IVP PRN; -MIDAZOLAM 2 MG/2 ML VIAL IV PRN; -fentaNYL (PF) 50 MCG/ML 2 ML AMP IVP PRN
[2023-12-15 09:33] VITALS: TEMP 97.7
[2023-12-15] MEDS: LACTATED RINGERS 1,000 ML IV SCH (09:44)
[2023-12-15] MEDS: IV FLUID CONTINUATION 1,000 ML IV ONE (09:44)
[2023-12-15] MEDS ORDERED: PROPOFOL 10 MG/ML 20 ML VIAL IV ONE (10:28)
--- NOTE | 2023-12-15 10:54 | P.PCN ---
Date of Procedure: 12/15/23 Procedure(s) Performed: BRIEF HISTORY: Patient is a 48-year-old pleasant white female scheduled for an elective colonoscopy as a part of evaluation of abnormal CAT scan that showed abnormality of the cecum. Patient does not have any symptoms. No history of colonoscopy in the past PROCEDURE PERFORMED: Colonoscopy with snare polypectomy. PREOPERATIVE DIAGNOSIS: Abnormal CAT scan. IV sedation per Anesthesia. PROCEDURE: After informed consent was obtained, the patient, was brought into the endoscopy unit. IV sedation was administered by Anesthesia under continuous monitoring. Digital rectal examination was normal. Initially the Olympus CF-160 flexible video colonoscope was then inserted in the rectum, gradually advanced into the cecum without any difficulty. Careful examination was performed as the scope was gradually being withdrawn. Ileocecal valve and the appendiceal orifice were visualized and appeared normal. Prep was excellent. Mucosa of the cecum, ascending colon, transverse colon, descending colon, sigmoid colon, and rectum appeared normal. In the proximal rectum there was a 5 mm polyp that was removed by cold snare polypectomy. Retroflexion was performed in the rectum and no lesions were seen. The patient tolerated the procedure well. IMPRESSION: 5 mm proximal rectal polyp status post cold snare polypectomy Rest of the colon appeared normal No abnormalities noted in the cecum RECOMMENDATIONS: Findings of this examination were discussed with the patient as well as her family. She was advised to follow-up with the biopsy results. If the biopsy reveals adenoma she can have repeat colonoscopy in 5 years.
[2023-12-15 11:13] VITALS: BP 104/68; PULSE 65; RESP 16
== END 2023-12-15 11:38 | disposition home or self-care (01) ==
LOC: ORWHC2ENDO 08:58
PROVIDERS: ATTEND Internal Medicine Gastroenterology
DX: K62.1 Rectal polyp (principal); Z79.899 Other long term (current) drug therapy
CPT/HCPCS: 88305; 45385; J2704

== ENCOUNTER → 2024-04-17 | Outpatient (CLI) | payer BC ==
--- NOTE | 2024-04-17 15:54 | USB ---
Reason for Exam: Additional evaluation requested from abnormal screening. Patient History: Menarche at age 11. First Full-Term at age 27. Hysterectomy at age 43. Risk Values: Danica 5 year model risk: 1.1%. NCI Lifetime model risk: 9.9%. Prior Study Comparison: 06/26/2022 Right MG 3D diag mammo w/cad RT, [facility]. 03/18/2023 Bilateral MG 3D screening mammo w/cad, [facility]. 04/03/2024 Bilateral MG 3D screening mammo w/cad, [facility]. Findings: The axilla of the left breast and the retroareolar of the left breast were scanned. Targeted subareolar and periareolar left breast ultrasound including scanning of the axilla. 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 Some ducts contain internal filling defect but movement is seen on real-time scanning indicating thickened debris/secretions. No discrete intraductal mass is identified. No axillary adenopathy. Overall Assessment: Suspicious, BI-RAD 4 Management: Stereotactic Core Biopsy of the right breast. Also, six-month follow-up left breast subareolar/periareolar ultrasound to reassess the ducts. Results were given to the patient verbally at the time of exam. [facility], , 04/17/2024 3:50 PM. Electronically signed and approved by: Kateryan Sepulveda M.D. Radiologist
--- NOTE | 2024-04-17 15:54 | MM ---
Reason for Exam: Additional evaluation requested from abnormal screening. Last screening mammogram was performed less than 1 month ago. Patient History: Menarche at age 11. First Full-Term at age 27. Hysterectomy at age 43. Risk Values: Danica 5 year model risk: 1.1%. NCI Lifetime model risk: 9.9%. Prior Study Comparison: 11/21/2021 Bilateral MG 3D screening mammo w/cad, [facility]. 11/28/2021 Right MG 3D work up w/cad RT, [facility]. 06/26/2022 Right MG 3D diag mammo w/cad RT, [facility]. 03/18/2023 Bilateral MG 3D screening mammo w/cad, [facility]. 04/03/2024 Bilateral MG 3D screening mammo w/cad, [facility]. Tissue Density: Right: The breasts are heterogeneously dense, which may obscure small masses. Findings: Analyzed By CAD. There are grouped heterogeneous calcifications at the 12 to 1:00 position right breast spanning approximately 3 cm. These are suspicious and biopsy is recommended. Overall Assessment: Incomplete: need additional imaging evaluation, BI-RAD 0 Management: Diagnostic Breast Ultrasound of the left breast. [facility], , 04/17/2024 3:51 PM. Electronically signed and approved by: Kateryna Sepulveda M.D. Radiologist
== END | disposition home or self-care (01) ==
LOC: RADMAMWWP 14:52
PROVIDERS: ATTEND Family Medicine
DX: R92.8 Other abnormal and inconclusive findings on diagnostic imaging of breast (principal); R92.333 Mammographic heterogeneous density, bilateral breasts
CPT/HCPCS: 77061; 77065

== ENCOUNTER → 2024-04-27 | Outpatient (CLI) | payer BC ==
[2024-04-27 07:48] VITALS: BP 115/76; PULSE 77; RESP 16; TEMP 97.9
== END ==
LOC: WWCWWP 07:12
PROVIDERS: ATTEND Surgery
DX: Z53.9 Procedure and treatment not carried out, unspecified reason (principal)

== ENCOUNTER → 2024-04-27 | Day surgery (SDC) | payer BC ==
--- NOTE | 2024-04-27 08:15 | P.GSCN ---
History of Present Illness Consult date: 04/27/24 Reason for Consult: abnormal right breast mammogram Requesting physician: Randy Harrell History of present illness: Laura is a 49 year old female seen in consultation for Dr. Harrell regarding an abnormal right breast mammogram. She had a bilateral mammogram on 04-03-24 which revealed calcifications in the 12:00 region of the right breast. Additional radiographs ultrasound of the left breast and diagnostic mammogram of the right breast were done on 04-17-24. The left breast showed duct ectasia and repeat ultrasound in 6 months recommended. The right breast showed calcifications in the 12:00 to 1:00 position spanning 3 cm and stero biopsy recommended. This mammogram was personally reviewed and discussed with radiologist DR. Richardson. This was a routine mammogram. She does not feel any lumps masses or nodules of concern in either breast. She has never had any surgery on her breast. She is not complaining of any recent trauma or infection in the breast. She is not complaining of any skin changes or nipple discharge. 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 she was asymptomatic and done in workup for hysterectomy last time she saw them was about 2 years ago Caffeine:8 oz/day nicotine: none chocolate: occasional BCP: 2 years Family History: mother: lung cancer father: throat and lung cancer Hormonal History: menarche: 11 M2, breast fed: no, age at first : 27 hysterectomy at 39 for bleeding, left ovaries ( no symptoms of menopause) Surgical History: hysterectomy tubaligation ablation gastric sleeve gallbaldder 2 C-Sections kideny stones Medical History: HTN kidney stones low 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 Social History: nicotine: none alcohol: none drugs: none Review of Systems - Constitutional Denies fever, Denies weight loss - EENT Eyes: denies blurred vision Ears: deny: decreased hearing, tinnitus Ears, nose, mouth and throat: Denies dysphagia - Breasts bilateral: as per HPI - Cardiovascular Denies chest pain, Denies shortness of breath - Respiratory Denies cough, Denies 7 - Gastrointestinal Reports as per HPI - Genitourinary Genitourinary: Reports as per HPI, Denies dysuria, Denies hematuria Menstruation: Reports post hysterectomy - Musculoskeletal Reports as per HPI - Integumentary Reports as per HPI - Neurological Denies headaches, Denies syncope - Psychiatric Reports as per HPI, Reports anxiety - Endocrine Reports as per HPI - Hematologic/Lymphatic Denies easy bleeding, Denies easy bruising - Allergic/Immunologic Reports as per HPI Past Medical History Past Medical History: Hypertension Additional Past Medical History / Comment(s): Hx of kidney stones. History of Any Multi-Drug Resistant Organisms: None Reported Past Surgical History: Bariatric Surgery, Section, Hysterectomy, Tonsillectomy, Tubal Ligation, Uterine Ablation Additional Past Surgical History / Comment(s): GASTRIC SLEEVE 04-24-16, lithotripsy X4. Past Anesthesia/Blood Transfusion Reactions: No Reported Reaction Past Psychological History: Anxiety Smoking Status: Never smoker Past Alcohol Use History: None Reported Past Drug Use History: None Reported - Past Family History Mother Family Medical History: Cancer Additional Family Medical History / Comment(s): Lung cancer . Father Family Medical History: Cancer Additional Family Medical History / Comment(s): Throat and lung cancer. Medications and Allergies Home Medications Medication Instructions Recorded Confirmed Type Semaglutide [Wegovy] 2.4 mg SQ WEEKLY 11/19/23 04/27/24 History Sertraline [Zoloft] 150 mg PO HS 11/19/23 04/27/24 History Zolpidem [Ambien] 10 mg PO HS PRN 11/19/23 04/27/24 History amLODIPine [Norvasc] 10 mg PO QAM 11/19/23 04/27/24 History ALPRAZolam [Xanax] 0.25 mg PO TID PRN 12/13/23 04/27/24 History Losartan Potassium 100 mg PO HS 12/13/23 04/27/24 History Allergies Allergy/AdvReac Type Severity Reaction Status Date / Time No Known Allergies Allergy Verified 04/27/24 07:45 Surgical - Exam - General no distress - Eyes normal ocular movement - ENT no hearing loss - Neck trachea midline - Respiratory normal respiratory effort, clear to auscultation - Cardiovascular Rhythm: regular Heart Sounds: normal: S1, S2 - Abdomen Abdomen: soft, non tender, no guarding, no rigid, no rebound - Integumentary normal turgor - Neurologic no disoriented, no combative - Musculoskeletal normal gait - Psychiatric oriented to time, oriented to person, oriented to place, speech is normal, memory intact Breast Exam: BRA: 38DD Inspection: Bilateral grade 3 ptosis Palpation: Right breast: Multi positional exam no dominant masses or nodules of concern Right axilla: No adenopathy of concern Left breast: Multi positional exam no dominant masses or nodules of concern Left axilla: No adenopathy of concern Results mammogram personally reviewed with radiology, microcalcifications in the right breast at the 12 o'clock position spanning approximately 3 cm recommend stereotactic core biopsy Left breast ultrasound revealing duct ectasia and recommend repeat ultrasound in 6 months Assessment and Plan Assessment: Impression: Abnormal right breast mammogram 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 Risk include but are not limited to bleeding, infection, reaction to the anesthetic. If adequate tissue acquisition is not a procured then further tissue acquisition may be necessary. The patient understands the risks and benefits and wishes to proceed. CC: Dr. Harrell
--- NOTE | 2024-04-27 12:52 | P.BCAON ---
Date of Procedure: 04/27/24 Preoperative Diagnosis: Microcalcifications of concern right breast Postoperative Diagnosis: Same Procedure(s) Performed: Right breast stereotactic core biopsy Anesthesia: local Surgeon: Laure Campbell Pathology: other (Breast tissue/radiograph reveals microcalcifications of concern) Condition: stable Disposition: same day Indications for Procedure: Microcalcifications of concern right breast Operative Findings: Radiograph of specimen reveals microcalcifications of concern Description of Procedure: Following informed consent the patient was brought to the stereotactic core biopsy room. She was positioned in the upright chair and a residential treatment counselor film was obtained with a CC from above approach of the right breast. The microcalcifications of concern were identified. These were targeted. The breast was prepped using chlorhexidine. 20 cc of 1% lidocaine were used to anesthetize the area. A 9 gauge vacuum-assisted core rotating biopsies petite needle was driven to the correct coordinates. A prefire film was obtained. The needle was noted to be in the correct location. The needle was fired. The needle was noted to be in the correct location. 24 core biopsy specimens were obtained. Radiograph of the specimens revealed the microcalcifications of concern had been adequately sampled. A Tri Antoni marker was placed. Post procedure radiograph revealed the clip was in the correct location. The patient tolerated the procedure in stable condition. The specimen was sent to pathology. The patient will follow-up with Dr. Rocha in 1 week.
--- NOTE | 2024-04-28 08:56 | MM ---
Date of Procedure: 04/27/24 Preoperative Diagnosis: Microcalcifications of concern right breast Postoperative Diagnosis: Same Procedure(s) Performed: Right breast stereotactic core biopsy Anesthesia: local Surgeon: Laure Campbell Pathology: other (Breast tissue/radiograph reveals microcalcifications of concern) Condition: stable Disposition: same day Indications for Procedure: Microcalcifications of concern right breast Operative Findings: Radiograph of specimen reveals microcalcifications of concern Description of Procedure: Following informed consent the patient was brought to the stereotactic core biopsy room. She was positioned in the upright chair and a filteration operator film was obtained with a CC from above approach of the right breast. The microcalcifications of concern were identified. These were targeted. The breast was prepped using chlorhexidine. 20 cc of 1% lidocaine were used to anesthetize the area. A 9 gauge vacuum-assisted core rotating biopsies petite needle was driven to the correct coordinates. A prefire film was obtained. The needle was noted to be in the correct location. The needle was fired. The needle was noted to be in the correct location. 24 core biopsy specimens were obtained. Radiograph of the specimens revealed the microcalcifications of concern had been adequately sampled. A Tri Antoni marker was placed. Post procedure radiograph revealed the clip was in the correct location. The patient tolerated the procedure in stable condition. The specimen was sent to pathology. The patient will follow-up with Dr. Rocha in 1 week. MAURO
== END ==
LOC: RADMAMWWP 07:13
PROVIDERS: ATTEND Surgery
DX: D05.11 Intraductal carcinoma in situ of right breast (principal); R92.8 Other abnormal and inconclusive findings on diagnostic imaging of breast; I10 Essential (primary) hypertension; F41.9 Anxiety disorder, unspecified; Z87.442 Personal history of urinary calculi; Z90.710 Acquired absence of both cervix and uterus; Z79.899 Other long term (current) drug therapy
CPT/HCPCS: 88305; 88341; 88342

== ENCOUNTER → 2024-05-04 | Outpatient (CLI) | payer BC ==
--- NOTE | 2024-05-04 15:47 | USB ---
Reason for Exam: Additional evaluation requested from prior study. Patient History: Menarche at age 11. First Full-Term at age 27. Hysterectomy at age 43. Breast cancer, right, age 49. 04/27/2024, Malignant MG stereo VAD BX RT on the right side. Technique: Method: Targeted. Prior Study Comparison: 03/18/2023 Bilateral MG 3D screening mammo w/cad, [facility]. 04/03/2024 Bilateral MG 3D screening mammo w/cad, [facility]. 04/17/2024 Right MG 3D work up w/cad RT, [facility]. Findings: The axilla of the right breast was scanned. Targeted ultrasound right axilla. Benign-appearing subcentimeter right axillary lymph node is present. No suspicious adenopathy is seen. Overall Assessment: Known biopsy proven malignancy, BI-RAD 6 Management: Surgical Consultation of the right breast. Recent known biopsy-proven malignancy. Surgical Evaluation advised. A clinical breast exam by your physician is recommended on an annual basis and results should be correlated with mammographic findings. This exam should not preclude additional follow-up of suspicious palpable abnormalities. Results were given to the patient verbally at the time of exam. [facility], , 05/04/2024 3:43 PM. Electronically signed and approved by: Deshawn Garrido M.D.
== END | disposition home or self-care (01) ==
LOC: RADUSWWP 15:31
PROVIDERS: ATTEND Surgery
DX: N63.10 Unspecified lump in the right breast, unspecified quadrant (principal)

== ENCOUNTER → 2024-05-04 | Outpatient (CLI) | payer BC ==
[2024-05-04 14:45] VITALS: BP 140/83; PULSE 79; RESP 17; TEMP 97.9
--- NOTE | 2024-05-04 14:50 | P.PN ---
Subjective Progress Note Date: 05/04/24 04/27/24 Reason for Consult: abnormal right breast mammogram Requesting physician: Randy Harrell History of present illness: Laura is a 49 year old female seen in consultation for Dr. Harrell regarding an abnormal right breast mammogram. She had a bilateral mammogram on 04-03-24 which revealed calcifications in the 12:00 region of the right breast. Additional radiographs ultrasound of the left breast and diagnostic mammogram of the right breast were done on 04-17-24. The left breast showed duct ectasia and repeat ultrasound in 6 months recommended. The right breast showed calcifications in the 12:00 to 1:00 position spanning 3 cm and stero biopsy recommended. This mammogram was personally reviewed and discussed with radiologist DR. Richardson. This was a routine mammogram. She does not feel any lumps masses or nodules of concern in either breast. She has never had any surgery on her breast. She is not complaining of any recent trauma or infection in the breast. She is not complaining of any skin changes or nipple discharge. 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 She has some mild ecchymosis at the site. 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 Social History: nicotine: none alcohol: none drugs: none Review of Systems - Constitutional Denies fever, Denies weight loss - EENT Eyes: denies blurred vision Ears: deny: decreased hearing, tinnitus Ears, nose, mouth and throat: Denies dysphagia - Breasts bilateral: as per HPI - Cardiovascular Denies chest pain, Denies shortness of breath - Respiratory Denies cough - Gastrointestinal Reports as per HPI - Genitourinary Genitourinary: Reports as per HPI, Denies dysuria, Denies hematuria Menstruation: Reports post hysterectomy - Musculoskeletal Reports as per HPI - Integumentary Reports as per HPI - Neurological Denies headaches, Denies syncope - Psychiatric Reports as per HPI, Reports anxiety - Endocrine Reports as per HPI - Hematologic/Lymphatic Denies easy bleeding, Denies easy bruising - Allergic/Immunologic Reports as per HPI Past Medical History Past Medical History: Hypertension Additional Past Medical History / Comment(s): Hx of kidney stones. History of Any Multi-Drug Resistant Organisms: None Reported Past Surgical History: Bariatric Surgery, Section, Hysterectomy, Tonsillectomy, Tubal Ligation, Uterine Ablation Additional Past Surgical History / Comment(s): GASTRIC SLEEVE 04-24-16, lithotripsy X4. Past Anesthesia/Blood Transfusion Reactions: No Reported Reaction Past Psychological History: Anxiety Smoking Status: Never smoker Past Alcohol Use History: None Reported Past Drug Use History: None Reported - Past Family History Mother Family Medical History: Cancer Additional Family Medical History / Comment(s): Lung cancer . Father Family Medical History: Cancer Additional Family Medical History / Comment(s): Throat and lung cancer. Medications and Allergies Home Medications Medication Instructions Recorded Confirmed Type Semaglutide [Wegovy] 2.4 mg SQ WEEKLY 11/19/23 04/27/24 History Sertraline [Zoloft] 150 mg PO HS 11/19/23 04/27/24 History Zolpidem [Ambien] 10 mg PO HS PRN 11/19/23 04/27/24 History amLODIPine [Norvasc] 10 mg PO QAM 11/19/23 04/27/24 History ALPRAZolam [Xanax] 0.25 mg PO TID PRN 12/13/23 04/27/24 History Losartan Potassium 100 mg PO HS 12/13/23 04/27/24 History Allergies Allergy/AdvReac Type Severity Reaction Status Date / Time No Known Allergies Allergy Verified 04/27/24 07:45 Surgical - Exam - General no distress - Eyes normal ocular movement - ENT no hearing loss - Neck trachea midline - Respiratory normal respiratory effort, clear to auscultation - Cardiovascular Rhythm: regular Heart Sounds: normal: S1, S2 - Abdomen Abdomen: soft, non tender, no guarding, no rigid, no rebound - Integumentary normal turgor - Neurologic no disoriented, no combative - Musculoskeletal normal gait - Psychiatric oriented to time, oriented to person, oriented to place, speech is normal, memory intact Breast Exam from 04-27-24, new findings ecchymosis biopsy site right breast BRA: [id number] Inspection: Bilateral grade 3 ptosis Palpation: Right breast: Multi positional exam no dominant masses or nodules of concern Right axilla: No adenopathy of concern Left breast: Multi positional exam no dominant masses or nodules of concern Left axilla: No adenopathy of concern Results mammogram personally reviewed with radiology, microcalcifications in the right breast at the 12 o'clock position spanning approximately 3 cm recommend stereotactic core biopsy Left breast ultrasound revealing duct ectasia and recommend repeat ultrasound in 6 months Assessment and Plan Assessment: Impression: right breast invasive ducatal cancer Ultrasound left breast revealing 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 Harrell Additional CC's: Randy Harrell Objective - Constitutional General appearance: Present: cooperative - EENT Eyes: Present: EOMI ENT: Present: hearing grossly normal - Neck Neck: Present: normal ROM - Respiratory Respiratory: bilateral: CTA - Cardiovascular Rhythm: regular Heart sounds: normal: S1, S2 - Integumentary Integumentary: Present: normal turgor - Musculoskeletal Musculoskeletal: Present: gait normal - Psychiatric Psychiatric: Present: A&O x's 3, appropriate affect, intact judgment & insight - Additional findings Additional findings: Breast Exam: BRA: [id number] Inspection: Bilateral grade 3 ptosis Palpation: Right breast: Multi positional exam no dominant masses or nodules of concern Right axilla: No adenopathy of concern Left breast: Multi positional exam no dominant masses or nodules of concern Left axilla: No adenopathy of concern Assessment and Plan Assessment: Impression: Abnormal right breast mammogram/stero biopsy right breast (+) IDC, grade 2, ER+Pr+Her2+ 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 Risk include but are not limited to bleeding, infection, reaction to the anesthetic. If adequate tissue acquisition is not a procured then further tissue acquisition may be necessary. The patient understands the risks and benefits and wishes to proceed. CC: Dr. Harrell
== END ==
LOC: WWCWWP 14:34
PROVIDERS: ATTEND Surgery
DX: C50.911 Malignant neoplasm of unspecified site of right female breast (principal)

== ENCOUNTER → 2024-05-15 | Outpatient (CLI) | payer BC ==
--- NOTE | 2024-05-15 18:49 | CA ---
Transthoracic Echo Report Name: Laura Levi Age: 49 Gender: F : 1975 Exam Date: 05/15/2024 13:32 Exam Location: [facility] Ht (in): 60 Wt (lb): 155 Ordering Physician: Speedy Craven MD Attending/Referring Phys: [employer] Insulator Helper Montse Patel RDCS Procedure CPT: Indications: I10 HTN Z01.818 Chemo Cardiac Hx: Technical Quality: Good Contrast 1: Total Dose (mL): Contrast 2: Total Dose (mL): MEASUREMENTS (Male / Female) Normal Values 2D ECHO LV Diastolic Diameter PLAX 4.6 cm 4.2 - 5.9 / 3.9 - 5.3 cm LV Systolic Diameter PLAX 3.1 cm IVS Diastolic Thickness 0.7 cm 0.6 - 1.0 / 0.6 - 0.9 cm LVPW Diastolic Thickness 0.7 cm 0.6 - 1.0 / 0.6 - 0.9 cm LV Relative Wall Thickness 0.3 LVOT Diameter 2.0 cm LV Diastolic Volume MOD BP 75.5 cm??? 67 - 155 / 56 - 104 cm??? LV Systolic Volume MOD BP 29.7 cm??? 22 - 58 / 19 - 49 cm??? LV Ejection Fraction MOD BP 60.6 % >= 55 % LV Cardiac Index MOD BP 1829.0 cm???/min???m??? LV Diastolic Volume MOD 4C 77.4 cm??? LV Systolic Volume MOD 4C 31.6 cm??? LV Ejection Fraction MOD 4C 59.1 % LV Cardiac Index MOD 4C 1825.6 cm???/min???m??? LV Diastolic Length 4C 7.8 cm LV Systolic Length 4C 6.6 cm LV Diastolic Volume MOD 2C 72.7 cm??? LV Systolic Volume MOD 2C 27.1 cm??? LV Ejection Fraction MOD 2C 62.8 % LV Cardiac Index MOD 2C 1825.1 cm???/min???m??? LV Diastolic Length 2C 7.6 cm LV Systolic Length 2C 6.4 cm LA Volume 27.6 cm??? 18 - 58 / 22 - 52 cm??? LA Volume Index 15.8 cm???/m??? 16 - 28 cm???/m??? Ascending Aorta Diameter 2.9 cm DOPPLER AV Peak Velocity 139.7 cm/s AV Peak Gradient 7.8 mmHg AV Mean Velocity 98.4 cm/s AV Mean Gradient 4.2 mmHg AV Velocity Time Integral 27.9 cm LVOT Peak Velocity 95.4 cm/s LVOT Peak Gradient 3.6 mmHg LVOT Velocity Time Integral 19.5 cm LVOT Stroke Volume 62.8 cm??? LVOT Stroke Volume Index 37.5 ml/m??? LVOT Cardiac Index 2507.7 cm???/min???m??? AV Area Cont Eq vti 2.2 cm??? AV Area Cont Eq pk 2.2 cm??? MV Area PHT 5.2 cm??? Mitral E Point Velocity 63.9 cm/s Mitral A Point Velocity 56.7 cm/s Mitral E to A Ratio 1.1 MV Deceleration Time 145.4 ms PV Peak Velocity 116.3 cm/s PV Peak Gradient 5.4 mmHg FINDINGS Left Ventricle Left ventricular ejection fraction is estimated at 60%. Left ventricular cavity size normal. Left ventricular wall thickness normal. No obvious regional wall motion abnormalities. Normal average global longitudinal strain of the left ventricle with a value of -18 %. Right Ventricle Normal right ventricular size and function. Unable to estimate the right ventricular systolic pressure. Right Atrium Normal right atrial size. Left Atrium Normal left atrial size. Mitral Valve Structurally normal mitral valve. No mitral stenosis, regurgitation or prolapse. Aortic Valve Trileaflet aortic valve. No aortic valve stenosis or regurgitation. Tricuspid Valve Structurally normal tricuspid valve. No tricuspid stenosis. Trace tricuspid regurgitation. Pulmonic Valve Structurally normal pulmonic valve. No pulmonic stenosis. No pulmonic regurgitation. Pericardium No pericardial effusion. Aorta Normal size aortic root and proximal ascending aorta. CONCLUSIONS Indication for the procedure ; prechemotherapy Normal LV size and function ejection fraction 60% Previewed by: Dr. Sharan Diaz MD (Electronically Signed) Final Date: 15 May 2024 18:48
== END | disposition home or self-care (01) ==
LOC: RADECHMAIN 13:21
PROVIDERS: ATTEND Internal Medicine
DX: Z01.818 Encounter for other preprocedural examination (principal); C50.211 Malignant neoplasm of upper-inner quadrant of right female breast; I10 Essential (primary) hypertension
CPT/HCPCS: 93306

== ENCOUNTER → 2024-05-19 | Outpatient (CLI) | payer BC ==
--- NOTE | 2024-05-24 10:14 | BMR ---
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 Pretreatment staging. COMPARISON: PRIOR MRIs: None available. Correlation to mammograms: Priors back to 04/28/2018. Correlation to ultrasound: 04/27/2024, 05/04/2024. CONTRAST: 7 cc Gadavist IV gadolinium contrast TECHNIQUE: Multiplanar multisequence MR imaging of both breasts was performed with a dedicated breast coil. Images were obtained before and after administration of IV gadolinium, using the standard breast mass protocol. Computer aided detection was utilized for interpretation. FINDINGS: LMP: Postmenopausal General breast composition: There are scattered areas of fibroglandular tissue Background parenchymal enhancement: Marked RIGHT BREAST: In the retroareolar 12 o'clock position there is a enhancing duct estimating 1.9 cm in length. 1.6 cm non mass enhancement adjacent to artifact for biopsy marker and 1.2 cm hematoma at site of recent biopsy in the left breast upper inner quadrant 5 cm from the nipple. No additional suspicious enhancement beyond background. No evidence of chest wall or nipple involvement. LEFT BREAST: The T2 weighted series shows no areas of abnormal signal intensity. Review of the dynamic series shows islands of fibroglandular tissue which appears stable compared to 04/18/2018 mammogram. LYMPH NODES: There is no evidence of internal mammary or axillary adenopathy. IMPRESSION: RIGHT BREAST: Known malignancy in the right breast poorly enhancing beyond background enhancement and presence of small adjacent hematoma. Calcifications mammographically estimate 2.5 cm. No findings to suggest multicentric or multifocal disease. Enhancing duct in the right breast retroareolar, 12 o'clock position. Targeted ultrasound with possible biopsy recommended. LEFT BREAST: No MR evidence of malignancy. OVERALL ASSESSMENT -- BI-RADS 4: Suspicious for malignancy MTDD
== END | disposition home or self-care (01) ==
LOC: RADMRIMAIN 18:57
PROVIDERS: ATTEND Internal Medicine
DX: Z01.818 Encounter for other preprocedural examination (principal); C50.211 Malignant neoplasm of upper-inner quadrant of right female breast; I10 Essential (primary) hypertension; R92.1 Mammographic calcification found on diagnostic imaging of breast; Z78.0 Asymptomatic menopausal state
CPT/HCPCS: 77049; A9585

== ENCOUNTER 2024-05-23 13:06 | Day surgery (SDC) | payer BC ==
[2024-05-17 16:19] VITALS: BMI 25.7
[~2024-05-23 13:06] MED LIST changes: -LIDOCAINE 1% (10MG/ML) FOR IV START INTRADERMA PRN; +Pre Op ABX Message 1 EACH MISC MISCELLANE ONE
[2024-05-23 13:28] VITALS: RESP 18
[2024-05-23 13:39] LABS: Glucose,Whole Blood 90 mg/dL (70-110)
[2024-05-23] MEDS: DEXAMETHASONE SOD PHOSPHATE 4 MG/ML 1 ML VIAL IV ONE (13:40)
[2024-05-23] MEDS: ONDANSETRON 4 MG/2 ML VIAL IVP ONE (13:40)
[2024-05-23] MEDS: LACTATED RINGERS 1,000 ML IV SCH (13:40)
[2024-05-23] MEDS: IV FLUID CONTINUATION 1,000 ML IV ONE (13:41)
[2024-05-23] MEDS ORDERED: WATER FOR INJECTION, STERILE 10 ML VIAL IV ONE (14:23)
[2024-05-23] MEDS: HEPARIN SODIUM,PORCINE 5,000 UNIT/ML 1 ML VIAL SQ ONE (14:23)
[2024-05-23] MEDS ORDERED: fentaNYL (PF) 50 MCG/ML 2 ML AMP ONE (14:23)
[2024-05-23] MEDS ORDERED: PHENYLEPHRINE 10 MG/ML VIAL ONE (14:23)
[2024-05-23] MEDS ORDERED: GLYCOPYRROLATE 0.2 MG/ML 2 ML VIAL ONE (14:23)
[2024-05-23] MEDS ORDERED: ePHEDrine 50 MG/ML 1 ML VIAL ONE (14:23)
[2024-05-23] MEDS ORDERED: MIDAZOLAM 2 MG/2 ML VIAL ONE (14:23)
[2024-05-23] MEDS ORDERED: LIDOCAINE 1% INJ 10MG/ML (20 ML MDV) ONE (14:23)
[2024-05-23] MEDS ORDERED: PROPOFOL 10 MG/ML 20 ML VIAL IV ONE (14:23)
[2024-05-23] MEDS: LIDOCAINE 1% INJ 10MG/ML (30 ML VIAL-PF) SQ ONE (14:44)
[2024-05-23 15:31] VITALS: TEMP 96.8
--- NOTE | 2024-05-23 15:37 | FL ---
Fluoroscopy INDICATION: Pain FINDINGS: Fluoroscopy time: 9.2 seconds. Total dose area product (DAP) in uGy*m?, mGy*cm? (or similar): 0.27567 Images obtained: 1. Images document catheter placement. IMPRESSION: 1. Documentation of fluoroscopy. [facility], , 05/23/2024 3:34 PM
[2024-05-23] MEDS: HYDROmorphone 0.5 MG/0.5 ML SYRINGE IVP PRN (16:13)
[2024-05-23 16:48] VITALS: BP 138/77; PULSE 87
--- NOTE | 2024-05-23 16:52 | XR ---
EXAMINATION TYPE: XR chest 1V portable DATE OF EXAM: 05/23/2024 4:45 PM COMPARISON: Fluoroscopic images of the same date. Chest radiograph 06/24/2014 TECHNIQUE: XR chest 1V portable Portable AP radiograph of the chest. CLINICAL INDICATION:Female, 49 years old with history of mediport placement; FINDINGS: Lungs/Pleura: There is no evidence of pleural effusion, focal consolidation, or pneumothorax. Pulmonary vascularity: Unremarkable. Heart/mediastinum: Cardiomediastinal silhouette is unremarkable. Musculoskeletal: No acute osseous pathology. Other findings: None Lines/Tubes: Interval placement of right chest Mediport catheter with subclavian approach. Distal tip terminates a t the low SVC. There is focal narrowing of the Mediport catheter just beneath the right clavicle. IMPRESSION: Interval placement of right chest Mediport catheter. Focal narrowing of the Mediport catheter just be neath the right clavicle. No pneumothorax. [facility], , 05/23/2024 4:49 PM
--- NOTE | 2024-05-23 22:35 | P.OP ---
Date of Procedure: 05/23/24 Preoperative Diagnosis: Breast cancer Postoperative Diagnosis: Breast cancer Procedure(s) Performed: 14 [place] Mediport insertion Implants: 14 [place]z Mediport Anesthesia: JERZYA Surgeon: Julito Lopez Pathology: none sent Condition: stable Disposition: PACU Indications for Procedure: Breast cancer Operative Findings: Breast cancer Description of Procedure: Patient was brought to the operating suite where she was cleaned and draped in sterile fashion and a timeout was performed and everyone agreed with the information recited. The introducer needle was then used to puncture the skin 2 fingerbreadths below the right clavicle and advanced to underneath the clavicle where I cannulated the subclavian vein I then used a guidewire to gain access to the subclavian vein and SVC this was verified by a C arm. Next a pocket was created 2 fingerbreadths below this next a pocket was created 2 fingerbreadths below this and electrocautery was used to dissect down to the prepectoral fascia once was done a tunneling device was then used to tunnel underneath the subcutaneous tissue to where the puncture site. A #11 blade was then used to make the puncture site bigger and a dilator sheath combo was placed over the guidewire under fluoroscopy. The catheter was then placed through the dilator sheath combo after the guidewire was removed. Fluoroscopy was then used to verify the catheter being at the SVC junction. The dilator sheath combo was removed the catheter was cut and the Mediport and locking mechanism was attached a Murry needle was then used to aspirate blood and flush normal saline through the port the port was hep-locked. And the port incisions were closed using 4-0 Vicryl suture in a running fashion. Skin glue was placed over this and the patient was transported to PACU in stable condition.
== END 2024-05-23 17:03 | disposition home or self-care (01) ==
LOC: OR 13:06
PROVIDERS: ATTEND Surgery
DX: C50.211 Malignant neoplasm of upper-inner quadrant of right female breast (principal); Z45.2 Encounter for adjustment and management of vascular access device
CPT/HCPCS: 77001; 71045; 36561; C1788; J2250; J1644; J1100; J2405; J2003; J3010; J1642; J2704; J1171; J2371; J1596

== ENCOUNTER → 2024-08-31 | Outpatient (CLI) | payer BC ==
[2024-08-31 13:10] VITALS: BP 133/83; PULSE 101; RESP 17; TEMP 97.9
--- NOTE | 2024-08-31 13:38 | P.PN ---
Subjective Progress Note Date: 08/31/24 Principal diagnosis: IIB IDC right breast, [id number] ER+Pr+Her2+ Subjective Progress Note Date: 08-31-24 History of present illness: 04-27-24 Laura is a 49 year old female seen initially in consultation for Dr. Harrell regarding an abnormal right breast mammogram. She had a bilateral mammogram on 04-03-24 which revealed calcifications in the 12:00 region of the right breast. Additional radiographs ultrasound of the left breast and diagnostic mammogram of the right breast were done on 04-17-24. The left breast showed duct ectasia and repeat ultrasound in 6 months recommended. The right breast showed calcifications in the 12:00 to 1:00 position spanning 3 cm and stero biopsy recommended. This mammogram was personally reviewed and discussed with radiologist DR. Richardson. This was a routine mammogram. 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 she was asymptomatic and done in workup for hysterectomy last time she saw them was about 2 years ago Stero biopsy on 04-27-24 Abnormal right breast mammogram/stero biopsy right breast (+) IDC, grade 2, ER+Pr+Her2+; lesion spans 3 cm Case presented at tumor board on 05-09-24. Patient is going to followed up with medical oncology she had an appointment on [phone] Craven. The recommendation is for neoadjuvant chemotherapy. She will also be recommended to undergo a breast MRI, and genetic testing. She is presently receiving neoadjuvant chemotherapy her fifth cycle of TCHP, her last cycle will be on September 07, she had tolerated it well She did have an MRI of the breast performed on 05/19/2024; a questionable enlarged duct was identified and ultrasound was recommended of this area; no lesions of concern noted on the left side Germline genetic testing negative as per oncology note Ultrasound of the right axilla was performed on 05 04 24 and a subcentimeter lymph node which was benign-appearing was noted She will be ready for surgery for an approximately the end of September beginning of October. 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 Social History: nicotine: none alcohol: none drugs: none Review of Systems - Constitutional Denies fever, Denies weight loss - EENT Eyes: denies blurred vision Ears: deny: decreased hearing, tinnitus Ears, nose, mouth and throat: Denies dysphagia - Breasts bilateral: as per HPI - Cardiovascular Denies chest pain, Denies shortness of breath - Respiratory Denies cough - Gastrointestinal Reports as per HPI - Genitourinary Genitourinary: Reports as per HPI, Denies dysuria, Denies hematuria Menstruation: Reports post hysterectomy - Musculoskeletal Reports as per HPI - Integumentary Reports as per HPI - Neurological Denies headaches, Denies syncope - Psychiatric Reports as per HPI, Reports anxiety - Endocrine Reports as per HPI - Hematologic/Lymphatic Denies easy bleeding, Denies easy bruising - Allergic/Immunologic Reports as per HPI Past Medical History Past Medical History: Hypertension Additional Past Medical History / Comment(s): Hx of kidney stones. History of Any Multi-Drug Resistant Organisms: None Reported Past Surgical History: Bariatric Surgery, Section, Hysterectomy, Tonsillectomy, Tubal Ligation, Uterine Ablation Additional Past Surgical History / Comment(s): GASTRIC SLEEVE 04-24-16, lithotripsy X4. Past Anesthesia/Blood Transfusion Reactions: No Reported Reaction Past Psychological History: Anxiety Smoking Status: Never smoker Past Alcohol Use History: None Reported Past Drug Use History: None Reported - Past Family History Mother Family Medical History: Cancer Additional Family Medical History / Comment(s): Lung cancer . Father Family Medical History: Cancer Additional Family Medical History / Comment(s): Throat and lung cancer. Medications and Allergies Home Medications Medication Instructions Recorded Confirmed Type Semaglutide [Wegovy] 2.4 mg SQ WEEKLY 11/19/23 04/27/24 History Sertraline [Zoloft] 150 mg PO HS 11/19/23 04/27/24 History Zolpidem [Ambien] 10 mg PO HS PRN 11/19/23 04/27/24 History amLODIPine [Norvasc] 10 mg PO QAM 11/19/23 04/27/24 History ALPRAZolam [Xanax] 0.25 mg PO TID PRN 12/13/23 04/27/24 History Losartan Potassium 100 mg PO HS 12/13/23 04/27/24 History Allergies Allergy/AdvReac Type Severity Reaction Status Date / Time No Known Allergies Allergy Verified 04/27/24 07:45 Objective - Vital Signs Vital signs: Vital Signs Temp 97.9 F 08/31/24 13:07 Pulse 101 H 08/31/24 13:07 Resp 17 08/31/24 13:07 BP 133/83 08/31/24 13:07 Pulse Ox 98 08/31/24 13:07 FiO2 Intake & Output 08/30/24 08/31/24 08/31/24 18:59 06:59 18:59 Weight 68.946 kg - Constitutional General appearance: Present: cooperative - EENT Eyes: Present: EOMI ENT: Present: hearing grossly normal - Neck Neck: Present: normal ROM - Respiratory Respiratory: bilateral: CTA - Cardiovascular Rhythm: regular Heart sounds: normal: S1, S2 - Integumentary Integumentary: Present: normal turgor - Musculoskeletal Musculoskeletal: Present: gait normal - Psychiatric Psychiatric: Present: A&O x's 3, appropriate affect, intact judgment & insight - Additional findings Additional findings: Breast Exam: BRA: [id number] Inspection: Bilateral grade 3 ptosis Palpation: Right breast: Multi positional exam no dominant masses or nodules of concern Right axilla: No adenopathy of concern Left breast: Multi positional exam no dominant masses or nodules of concern Left axilla: No adenopathy of concern Assessment and Plan Assessment: Impression: Abnormal right breast mammogram/stero biopsy right breast (+) IDC, grade 2, ER+Pr+Her2+ Ultrasound left breast revealing 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 Craven related to MRI findings and at this time we are going to wait on that as she is going to get another MRI after her completion of neoadjuvant treatment Plan: Continue neoadjuvant chemotherapy Plan to schedule surgery for the end of September beginning of October CC: Dr. Harrell
== END ==
LOC: WWCWWP 12:58
PROVIDERS: ATTEND Surgery
DX: R92.8 Other abnormal and inconclusive findings on diagnostic imaging of breast (principal)

== ENCOUNTER 2024-09-15 11:54 | Day surgery (SDC) | payer BC ==
[2024-09-14 09:59] VITALS: BMI 29.9
[2024-09-15 13:09] VITALS: RESP 16; TEMP 98.4
--- NOTE | 2024-09-15 13:33 | IR ---
EXAMINATION TYPE: IR cva device check w fluoro Intraoperative/procedural fluoroscopic services were p rovided. CLINICAL INDICATION:Female, 49 years old with history of PORTACATHOGRAM; , PHH FINDINGS: Multiple fluoroscopic images for port a catheter gram. This is a tip of the right chest Mediport cath eter with subclavian approach terminates in the low SVC. Contrast is demonstrated extending through t he catheter into the right atrium during injection. Total fluoroscopy time is 0.1 min. DAP: 1.69 Gycm2 Please see the operative/procedural note for further details. [facility], , 09/15/2024 1:30 PM
--- NOTE | 2024-09-15 14:29 | P.OP ---
Date of Procedure: 09/15/24 Preoperative Diagnosis: Malfunctioning Mediport Breast cancer Postoperative Diagnosis: Malfunctioning Mediport Breast cancer Procedure(s) Performed: Portogram Surgeon: Alan Casper Estimated Blood Loss (ml): 2 Pathology: none sent Condition: stable Disposition: PACU Indications for Procedure: 49-year-old female with history of breast cancer on chemotherapy via right sided Mediport presents to the hospital secondary to Mediport malfunction. Per the patient it appears that the Mediport flips and sometimes is on assessable as well as possibly kinked. She does note that when they do finally get access there are minimal issues. Operative Findings: Mediport is loosely in the pocket and flips easily. No kinks noted on x-ray and flow is normal Description of Procedure: The area of the chest was prepped and draped in usual sterile fashion. Port demonstrated it to be flipped and needed manipulation. With some manual manipulation the Mediport was flipped within the chest underneath the skin and accessed with a Murry needle. Once accessed it was flushed and nichelle easily. Venogram was then obtained demonstrating no flow abnormalities. The area was cleansed and dressing was placed after removal of the Murry needle. If continued issues would need surgical intervention to suture down the Mediport so that it does not flip.
[2024-09-15 15:55] VITALS: BP 143/80; PULSE 83
== END 2024-09-15 13:24 | disposition home or self-care (01) ==
LOC: CATHCVL 11:54
PROVIDERS: ATTEND Surgery
DX: T82.598A Other mechanical complication of other cardiac and vascular devices and implants, initial encounter (principal); C50.919 Malignant neoplasm of unspecified site of unspecified female breast; Y83.8 Other surgical procedures as the cause of abnormal reaction of the patient, or of later complication, without mention of misadventure at the time of the procedure
CPT/HCPCS: 36598